=== PATIENT | female | born 1960 | race Caucasian/White ===

== ENCOUNTER → 2017-12-22 | Outpatient (CLI) | payer MEDICARE, OTHER ==
[~2017-12-22] MED LIST: ALPH300T PO; ALPRPOW XX; ASPI81TA82 PO; CALC600T34 PO; CITA-48 PO; DOXY100T PO; EZET10 PO; HUMALOGP SQ; LEVEMIR SQ; LEVO100T4 PO; LISI-357 PO; LYRI150C PO; ROSU20 PO
--- NOTE | 2017-12-22 09:21 | EKG ---
Date Performed: 12/22/2017 Time Performed: 07:42:28 PTAGE: 56 years EKG: Sinus rhythm . Septal T wave changes are nonspecific Borderline ECG PREVIOUS TRACING : 11/12/2011 02.28 Compared to prior tracing, rate now normal DOCTOR: Aster Goff Interpretating Date/Time 12/22/2017 09:21:26
== END ==
LOC: HCAV 07:29
PROVIDERS: ATTEND Orthopaedic Surgery Orthopaedic Surgery of the Spine
DX: Z01.810 Encounter for preprocedural cardiovascular examination (principal)
CPT/HCPCS: 93005

== ENCOUNTER 2019-01-23 00:04 | Inpatient (IN) ==
[2019-01-23] MEDS ORDERED: Sod Chloride 0.9% Inj 1,000 ML IV.SIG ONE (00:17)
[2019-01-23 00:22] LABS: VBG Base Excess -20.9 mmol/L (-2-2); VBG PCO2 23 mmHG (44-48); VBG PH 7.11 (7.360-7.400); VBG PO2 59 mmHG (35-40)
[2019-01-23] MEDS ORDERED: Potassium Chlor 20 mEq Premix 20 MEQ/100 ML PIGGYBACK IV.SIG PRN ×5 (00:26)
[2019-01-23] MEDS ORDERED: Potassium Chlor 40 mEq Premix 40 MEQ/100 ML PIGGYBACK IV.SIG PRN ×2 (00:26)
[2019-01-23] MEDS ORDERED: Sodium Phosphate Inj 15 MMOL in Sodium Chlor 0.9% Inj 100 ML IV.SIG PRN (00:26)
[2019-01-23] MEDS ORDERED: Insulin Regular (For Infusion) 100 UNIT in Sodium Chlor 0.9% Inj 99 ML IV.CONT PRN (00:26)
--- NOTE | 2019-01-23 00:31 | ED ---
HPI General Chief complaint: Diabetic Stated complaint: diabetic Time Seen by Provider: 01/23/19 00:07 Source: patient and EMS Mode of arrival: EMS Limitations: altered mental status History of Present Illness HPI narrative: The patient is a 58 year old female who presents to the [facility] emergency department with a history of reportedly not feeling well since the morning. She reports that she has had generalized weakness with fatigue, nausea with vomiting reportedly 4-5 times today, and diarrhea x1 this morning. Fire rescue was called out to the patient's home earlier in the day and at that time the patient was noted to have a blood sugar of 600, however she refused transport at that time. They were then again called out this evening at which time the patient's blood sugar was reportedly 865. The patient reports feeling short of breath. The patient is tachypneic on arrival with a sinus tach in the 130s. The patient has an insulin pump in place with a basal rate reportedly at 0.4-5 units/h. She reports that she last administered a bolus last night. She reports that she has not administered a bolus today due to feeling unwell. The patient has difficulty providing much additional history as she arrives fatigued and confused. When asked whether her insulin pump is working, she reports that it is, however she was unsure of the rate and had difficulty recalling who usually maintains her pump. Related Data Home Medications Medication Instructions Recorded Confirmed gabapentin 300 mg PO BID 01/23/19 01/23/19 levothyroxine 125 mcg PO DAILY 01/23/19 01/23/19 lisinopril 5 mg PO DAILY 01/23/19 01/23/19 metoprolol succinate 50 mg PO DAILY 01/23/19 01/23/19 oxcarbazepine 75 mg BID 01/23/19 01/23/19 pravastatin 40 mg PO DAILY 01/23/19 01/23/19 sertraline 25 mg PO DAILY 01/23/19 01/23/19 trazodone 100 mg PO HS 01/23/19 01/23/19 Allergies Allergy/AdvReac Type Severity Reaction Status Date / Time No Known Allergies Allergy Verified 01/23/19 00:18 Review of Systems ROS Unobtainable ROS Unobtainable: unobtainable due to mental status PMFSH Medical History Medical History Cataract (Acute) Diabetes (Acute) H/O: hysterectomy (Acute) High cholesterol (Acute) Hypertension (Acute) Hypothyroidism (Acute) Surgical History Surgical History H/O foot surgery (Acute) History of back surgery (Acute) Social History Social History Substance History: Active Abuse Second Hand Smoke Exposure: Yes Smoking Status: Current every day smoker Tobacco Type: Cigarettes How Often Do You Have a Drink Containing Alcohol: 4 or more times a week Recent Travel in [facility] within the Last 8 Weeks: No Recent Out of Country Travel within the Last 8 Weeks: No Substance Abuse Detail Marijuana: Substance Use Status: Active Route Used Substance Abuse: By Mouth and Inhalation Reason for Use: Feels Good Immunization History Tetanus Immunization: Unsure Exam HENMT Head: normocephalic and atraumatic Nose: no nasal discharge and no epistaxis Mouth: other (Dry mucous membranes.) Throat: posterior oropharynx normal and uvula midline Eyes Sclera: normal sclerae Pupils: PERRL Neck Neck: no meningeal signs, trachea midline and no JVD Resp Effort & Inspection: no use of accessory muscles Auscultation: clear to auscultation bilaterally Cardio Rate: tachycardic (Sinus tachycardia in the 120s, no pulse deficits to the extremities on simultaneous auscultation and palpation of her radial artery) Rhythm: regular rhythm Heart Sounds: no gallops, no murmurs and no rubs GI Inspection: non-distended Palpation: soft, no hepatosplenomegaly, no guarding, not rigid and nontender Auscultation: normal bowel sounds Back/Spine/Pelvis Back: no CVA tenderness Skin General: dry skin (warm) Neuro General: alert, awake and other (Grossly nonfocal) Speech: speech normal Motor: no movement abnormalities noted Extrem General: normal to inspection, no calf tenderness, no clubbing, no cyanosis and no edema Psych Mood: congruent mood Affect: normal affect Judgment: judgment good Course Initial Documented Vital Signs Pulse Rate 124 H 01/23/19 00:10 Respiratory Rate 22 01/23/19 00:10 Blood Pressure 117/51 L 01/23/19 00:10 Pulse Oximetry 99 01/23/19 00:10 Last Documented Vital Signs Temperature 97.8 F 02/25/19 08:31 Pulse Rate 107 H 01/23/19 18:01 Respiratory Rate 25 H 01/23/19 18:01 Blood Pressure 140/62 01/23/19 18:01 Pulse Oximetry 100 01/23/19 18:01 Critical Care Time Critical Care Time: Yes Total Critical Care Time: 34 Attestation: Aggregate critical care time was 34 minutes. Time to perform other separately billable procedures was not included in the critical care time. My time did not include minutes spent treating any other patients simultaneously or on activities that did not directly contribute to the patient's treatment. The services I provided to this patient were to treat and/or prevent clinically significant deterioration that could result in: Respiratory failure from fluid overload from crystalloid resuscitation, versus cerebral edema, versus progression of electrolyte derangements with cardiac dysrhythmia. I provided critical care services requiring my management, as noted below: Chart data review, documentation time, medication orders and management, vital sign assessments/reviewing monitor data, ordering and reviewing lab tests, ordering and interpreting/reviewing x-rays and diagnostic studies, care of the patient and discussion of the patient with the admitting physicians. Medical Decision Making MDM Narrative Medical decision making narrative: During the course of the patient's emergency department visit, the patient's history, examination, and differential diagnosis were reviewed with the patient. The patient was placed on a surveillance monitor with oximetry and frequent blood pressure monitoring. The patient had IV access obtained and blood work sent for analysis. A diagnostic evaluation was started regarding the patient's tachypnea associated with hyperglycemia suspicious for DKA. A VBG has been ordered. The patient was initially provided normal saline 1 L IV fluid bolus. The patient's VBG was resulted as showing of 7.105, bicarb 6.9 with a base excess of -20.9. The patient will be started on insulin bolus at 6.5 units IV followed by an insulin drip at 6 units/h. The patient's insulin pump was turned off. The patient's diagnostic studies are remarkable for a white count of 515.3, hemoglobin 13.4, platelets 364 with 80.7 neutrophil percent, PT PTT within normal limits, VBG was consistent with DKA with a pH of 7.11, PCO2 23, bicarb 7 , base excess is -20.9. Chemistries remarkable for sodium of 122, potassium 5.5 , chloride 81, CO2 7.9, anion gap 33, BUN 40, creatinine 3.08 in a patient with her last consistent with acute kidney injury versus acute on chronic renal insufficiency, blood sugar was initially 908, CK 58, troponin I 0.10, beta hydroxybutyrate is elevated 11.56, lipase 283. The patient's chest x-ray showed no acute cardiopulmonary disease. The patient's case including history, pertinent physical examination findings, and laboratory studies were discussed with Dr. Peraza,the retail sales merchandiser hotel casino floorperson. It was agreed that the patient would be admitted to the retail sales merchandiser's service. The patient's results were discussed with the patient, including the plan of care. I explained that further testing and/ or monitoring is indicated based on the patient's history, examination, and/ or laboratory findings. Therefore, I recommended admission for additional evaluation. The patient expressed understanding and was agreeable with this plan. The patient was admitted to the hospital in critical condition and sent to a bed under the care of the retail sales merchandiser service. Medical Screen Exam Complete: Yes Emergency Medical Condition: Yes Differential Diagnosis Differential Diagnosis: DKA, versus hyperglycemic hyperosmolality, versus poorly controlled diabetes mellitus, versus electrolyte derangements, versus sepsis Medical Records Medical records reviewed: Yes I reviewed the patient's medical records. Lab Data Lab results reviewed: Yes I reviewed the patient's lab results. Result diagrams: 01/23/19 00:20 01/23/19 12:42 Lab Results 01/23/19 01/23/19 01/23/19 Range/Units 00:12 00:20 00:20 WBC (4.0-11.0) th/mm3 RBC (4.00-5.30) mil/mm3 Hgb (11.6-15.3) gm/dL Hct (35.0-46.0) % MCV (80.0-100.0) fL MCH (27.0-34.0) pg MCHC (32.0-36.0) % RDW (11.6-17.2) % Plt Count (150-450) th/mm3 MPV (7.0-11.0) fL Prelim Diff (Auto) Neut % (Auto) (16.0-70.0) % Lymph % (Auto) (9.0-44.0) % [place] % (Auto) (0.0-8.0) % Eos % (Auto) (0.0-4.0) % Baso % (Auto) (0.0-2.0) % Neut # (Auto) (1.8-7.7) th/mm3 Lymph # (Auto) (1.0-4.8) th/mm3 [place] # (Auto) (0.0-0.9) th/mm3 Eos # (Auto) (0.0-0.4) th/mm3 Baso # (Auto) (0.0-0.2) th/mm3 WBC Differential Diff Scan Differential Comment Platelet Estimate (Normal) Platelet Morphology (Normal) [place] Cells (None) PT (9.8-11.6) sec INR Ratio APTT (23.4-31.7) sec Puncture Site Iv Patient Temperature 98.6 VBG pH 7.11 L* (7.360-7.400) VBG pCO2 23 L (44-48) mmHG VBG pO2 59 H (35-40) mmHG VBG HCO3 7 L* (22-26) mmol/L VBG O2 Saturation 79 H (70-76) % VBG O2 Content 14.0 (9.0-17.0) Vol % VBG Base Excess -20.9 L (-2-2) mmol/L VBG Carboxyhemoglobin 1.0 (0-4) % VBG Methemoglobin 1.0 (0-2) % Hemoglobin 12.6 (12.0-16.0) G/DL O2 Delivery Device Room air Inspired O2 21 % Critical Value Yes Sodium (136-145) meq/L Potassium (3.5-5.1) meq/L Chloride (98-107) meq/L Carbon Dioxide (21.0-32.0) meq/L Anion Gap (5-15) meq/L BUN (7-18) mg/dL Creatinine (0.50-1.00) mg/dL Estimated GFR (>89) mL/min POC Glucose (68-110) mg/dl Random Glucose (74-106) mg/dL Lactic Acid 8.3 H* (0.4-2.0) mmol/L Calcium (8.5-10.1) mg/dL Phosphorus (2.5-4.9) mg/dL Magnesium (1.5-2.5) mg/dL Total Bilirubin (0.2-1.0) mg/dL AST (15-37) U/L ALT (10-53) U/L Alkaline Phosphatase (45-117) U/L Total Creatine Kinase (26-192) U/L CK-MB (CK-2) (0.5-3.6) ng/mL Troponin I (0.02-0.05) ng/mL B-Natriuretic Peptide 231 H (0-100) pg/mL Total Protein (6.4-8.2) g/dL Albumin (3.4-5.0) g/dL Lipase (73-393) U/L Beta-Hydroxybutyric Acd (0.00-0.39) mmol/L Urine Color (Yellw/Straw) Urine Clarity (Clear) Urine pH (5.0-8.5) Ur Specific [place] (1.002-1.035) Urine Protein (Neg-Trace) mg/dL Urine Glucose (UA) (Negative) mg/dL Urine Ketones (Negative) mg/dL Urine Occult Blood (Negative) Urine Nitrate (Negative) Urine Bilirubin (Negative) Urine Urobilinogen (Less than 2) mg/dL Ur Leukocyte Esterase (Negative) Urine WBC (0-5) /hpf Ur Squamous Epith Cells (0-5) /hpf Urine Bacteria (None) /hpf Hyaline Casts (0-3) /lpf Urine Mucus (Occasional) /lpf Micro UA Comment Ur Microscopic Review Urine Culture Comments Nasal Screen MRSA (PCR) (Negative) 01/23/19 01/23/19 01/23/19 Range/Units 00:20 00:20 00:20 WBC 15.3 H (4.0-11.0) th/mm3 RBC 3.62 L (4.00-5.30) mil/mm3 Hgb 13.4 (11.6-15.3) gm/dL Hct 42.1 (35.0-46.0) % MCV 116.4 H (80.0-100.0) fL MCH 37.1 H (27.0-34.0) pg MCHC 31.9 L (32.0-36.0) % RDW 15.0 (11.6-17.2) % Plt Count 364 (150-450) th/mm3 MPV 7.7 (7.0-11.0) fL Prelim Diff (Auto) Slide review pending Neut % (Auto) 80.7 H (16.0-70.0) % Lymph % (Auto) 12.6 (9.0-44.0) % [place] % (Auto) 6.4 (0.0-8.0) % Eos % (Auto) 0.1 (0.0-4.0) % Baso % (Auto) 0.2 (0.0-2.0) % Neut # (Auto) 12.4 H (1.8-7.7) th/mm3 Lymph # (Auto) 1.9 (1.0-4.8) th/mm3 [place] # (Auto) 1.0 H (0.0-0.9) th/mm3 Eos # (Auto) 0.0 (0.0-0.4) th/mm3 Baso # (Auto) 0.0 (0.0-0.2) th/mm3 WBC Differential . Diff Scan Auto diff confirmed Differential Comment . Platelet Estimate Normal (Normal) Platelet Morphology Normal (Normal) [place] Cells 1+ H (None) PT 9.9 (9.8-11.6) sec INR 1.0 Ratio APTT 26.5 (23.4-31.7) sec Puncture Site Patient Temperature VBG pH (7.360-7.400) VBG pCO2 (44-48) mmHG VBG pO2 (35-40) mmHG VBG HCO3 (22-26) mmol/L VBG O2 Saturation (70-76) % VBG O2 Content (9.0-17.0) Vol % VBG Base Excess (-2-2) mmol/L VBG Carboxyhemoglobin (0-4) % VBG Methemoglobin (0-2) % Hemoglobin (12.0-16.0) G/DL O2 Delivery Device Inspired O2 % Critical Value Sodium 122 L* (136-145) meq/L Potassium 5.5 H (3.5-5.1) meq/L Chloride 81 L (98-107) meq/L Carbon Dioxide 7.9 L (21.0-32.0) meq/L Anion Gap 33 H (5-15) meq/L BUN 40 H (7-18) mg/dL Creatinine 3.08 H (0.50-1.00) mg/dL Estimated GFR 16 L (>89) mL/min POC Glucose (68-110) mg/dl Random Glucose 908 H* (74-106) mg/dL Lactic Acid (0.4-2.0) mmol/L Calcium 8.3 L (8.5-10.1) mg/dL Phosphorus (2.5-4.9) mg/dL Magnesium 1.9 (1.5-2.5) mg/dL Total Bilirubin 0.6 (0.2-1.0) mg/dL AST 21 (15-37) U/L ALT 31 (10-53) U/L Alkaline Phosphatase 111 (45-117) U/L Total Creatine Kinase 58 (26-192) U/L CK-MB (CK-2) (0.5-3.6) ng/mL Troponin I 0.10 H (0.02-0.05) ng/mL B-Natriuretic Peptide (0-100) pg/mL Total Protein 6.8 (6.4-8.2) g/dL Albumin 4.0 (3.4-5.0) g/dL Lipase 283 (73-393) U/L Beta-Hydroxybutyric Acd 11.56 H (0.00-0.39) mmol/L Urine Color (Yellw/Straw) Urine Clarity (Clear) Urine pH (5.0-8.5) Ur Specific [place] (1.002-1.035) Urine Protein (Neg-Trace) mg/dL Urine Glucose (UA) (Negative) mg/dL Urine Ketones (Negative) mg/dL Urine Occult Blood (Negative) Urine Nitrate (Negative) Urine Bilirubin (Negative) Urine Urobilinogen (Less than 2) mg/dL Ur Leukocyte Esterase (Negative) Urine WBC (0-5) /hpf Ur Squamous Epith Cells (0-5) /hpf Urine Bacteria (None) /hpf Hyaline Casts (0-3) /lpf Urine Mucus (Occasional) /lpf Micro UA Comment Ur Microscopic Review Urine Culture Comments Nasal Screen MRSA (PCR) (Negative) 01/23/19 01/23/19 01/23/19 Range/Units 01:33 02:20 02:26 WBC (4.0-11.0) th/mm3 RBC (4.00-5.30) mil/mm3 Hgb (11.6-15.3) gm/dL Hct (35.0-46.0) % MCV (80.0-100.0) fL MCH (27.0-34.0) pg MCHC (32.0-36.0) % RDW (11.6-17.2) % Plt Count (150-450) th/mm3 MPV (7.0-11.0) fL Prelim Diff (Auto) Neut % (Auto) (16.0-70.0) % Lymph % (Auto) (9.0-44.0) % [place] % (Auto) (0.0-8.0) % Eos % (Auto) (0.0-4.0) % Baso % (Auto) (0.0-2.0) % Neut # (Auto) (1.8-7.7) th/mm3 Lymph # (Auto) (1.0-4.8) th/mm3 [place] # (Auto) (0.0-0.9) th/mm3 Eos # (Auto) (0.0-0.4) th/mm3 Baso # (Auto) (0.0-0.2) th/mm3 WBC Differential Diff Scan Differential Comment Platelet Estimate (Normal) Platelet Morphology (Normal) [place] Cells (None) PT (9.8-11.6) sec INR Ratio APTT (23.4-31.7) sec Puncture Site Patient Temperature VBG pH (7.360-7.400) VBG pCO2 (44-48) mmHG VBG pO2 (35-40) mmHG VBG HCO3 (22-26) mmol/L VBG O2 Saturation (70-76) % VBG O2 Content (9.0-17.0) Vol % VBG Base Excess (-2-2) mmol/L VBG Carboxyhemoglobin (0-4) % VBG Methemoglobin (0-2) % Hemoglobin (12.0-16.0) G/DL O2 Delivery Device Inspired O2 % Critical Value Sodium (136-145) meq/L Potassium (3.5-5.1) meq/L Chloride (98-107) meq/L Carbon Dioxide (21.0-32.0) meq/L Anion Gap (5-15) meq/L BUN (7-18) mg/dL Creatinine (0.50-1.00) mg/dL Estimated GFR (>89) mL/min POC Glucose Greater than 600 H* Greater than 600 H* (68-110) mg/dl Random Glucose (74-106) mg/dL Lactic Acid (0.4-2.0) mmol/L Calcium (8.5-10.1) mg/dL Phosphorus (2.5-4.9) mg/dL Magnesium (1.5-2.5) mg/dL Total Bilirubin (0.2-1.0) mg/dL AST (15-37) U/L ALT (10-53) U/L Alkaline Phosphatase (45-117) U/L Total Creatine Kinase (26-192) U/L CK-MB (CK-2) (0.5-3.6) ng/mL Troponin I (0.02-0.05) ng/mL B-Natriuretic Peptide (0-100) pg/mL Total Protein (6.4-8.2) g/dL Albumin (3.4-5.0) g/dL Lipase (73-393) U/L Beta-Hydroxybutyric Acd (0.00-0.39) mmol/L Urine Color Yellow (Yellw/Straw) Urine Clarity Hazy H (Clear) Urine pH 5.0 (5.0-8.5) Ur Specific [place] 1.012 (1.002-1.035) Urine Protein 30 H (Neg-Trace) mg/dL Urine Glucose (UA) 500 or greater H (Negative) mg/dL Urine Ketones 20 (Negative) mg/dL Urine Occult Blood Small H (Negative) Urine Nitrate Negative (Negative) Urine Bilirubin Negative (Negative) Urine Urobilinogen Less than 2 (Less than 2) mg/dL Ur Leukocyte Esterase Negative (Negative) Urine WBC 1 (0-5) /hpf Ur Squamous Epith Cells 1 (0-5) /hpf Urine Bacteria Rare H (None) /hpf Hyaline Casts 56 (0-3) /lpf Urine Mucus Few H (Occasional) /lpf Micro UA Comment Culture not ind Ur Microscopic Review Not Reportable Urine Culture Comments Culture not ind Nasal Screen MRSA (PCR) (Negative) 01/23/19 01/23/19 01/23/19 Range/Units 02:30 03:00 03:29 WBC (4.0-11.0) th/mm3 RBC (4.00-5.30) mil/mm3 Hgb (11.6-15.3) gm/dL Hct (35.0-46.0) % MCV (80.0-100.0) fL MCH (27.0-34.0) pg MCHC (32.0-36.0) % RDW (11.6-17.2) % Plt Count (150-450) th/mm3 MPV (7.0-11.0) fL Prelim Diff (Auto) Neut % (Auto) (16.0-70.0) % Lymph % (Auto) (9.0-44.0) % [place] % (Auto) (0.0-8.0) % Eos % (Auto) (0.0-4.0) % Baso % (Auto) (0.0-2.0) % Neut # (Auto) (1.8-7.7) th/mm3 Lymph # (Auto) (1.0-4.8) th/mm3 [place] # (Auto) (0.0-0.9) th/mm3 Eos # (Auto) (0.0-0.4) th/mm3 Baso # (Auto) (0.0-0.2) th/mm3 WBC Differential Diff Scan Differential Comment Platelet Estimate (Normal) Platelet Morphology (Normal) [place] Cells (None) PT (9.8-11.6) sec INR Ratio APTT (23.4-31.7) sec Puncture Site Patient Temperature VBG pH (7.360-7.400) VBG pCO2 (44-48) mmHG VBG pO2 (35-40) mmHG VBG HCO3 (22-26) mmol/L VBG O2 Saturation (70-76) % VBG O2 Content (9.0-17.0) Vol % VBG Base Excess (-2-2) mmol/L VBG Carboxyhemoglobin (0-4) % VBG Methemoglobin (0-2) % Hemoglobin (12.0-16.0) G/DL O2 Delivery Device Inspired O2 % Critical Value Sodium (136-145) meq/L Potassium (3.5-5.1) meq/L Chloride (98-107) meq/L Carbon Dioxide (21.0-32.0) meq/L Anion Gap (5-15) meq/L BUN (7-18) mg/dL Creatinine (0.50-1.00) mg/dL Estimated GFR (>89) mL/min POC Glucose 593 H* (68-110) mg/dl Random Glucose 704 H* D (74-106) mg/dL Lactic Acid 3.9 H (0.4-2.0) mmol/L Calcium (8.5-10.1) mg/dL Phosphorus (2.5-4.9) mg/dL Magnesium (1.5-2.5) mg/dL Total Bilirubin (0.2-1.0) mg/dL AST (15-37) U/L ALT (10-53) U/L Alkaline Phosphatase (45-117) U/L Total Creatine Kinase (26-192) U/L CK-MB (CK-2) (0.5-3.6) ng/mL Troponin I (0.02-0.05) ng/mL B-Natriuretic Peptide (0-100) pg/mL Total Protein (6.4-8.2) g/dL Albumin (3.4-5.0) g/dL Lipase (73-393) U/L Beta-Hydroxybutyric Acd (0.00-0.39) mmol/L Urine Color (Yellw/Straw) Urine Clarity (Clear) Urine pH (5.0-8.5) Ur Specific [place] (1.002-1.035) Urine Protein (Neg-Trace) mg/dL Urine Glucose (UA) (Negative) mg/dL Urine Ketones (Negative) mg/dL Urine Occult Blood (Negative) Urine Nitrate (Negative) Urine Bilirubin (Negative) Urine Urobilinogen (Less than 2) mg/dL Ur Leukocyte Esterase (Negative) Urine WBC (0-5) /hpf Ur Squamous Epith Cells (0-5) /hpf Urine Bacteria (None) /hpf Hyaline Casts (0-3) /lpf Urine Mucus (Occasional) /lpf Micro UA Comment Ur Microscopic Review Urine Culture Comments Nasal Screen MRSA (PCR) (Negative) 01/23/19 01/23/19 01/23/19 Range/Units 04:29 04:30 05:28 WBC (4.0-11.0) th/mm3 RBC (4.00-5.30) mil/mm3 Hgb (11.6-15.3) gm/dL Hct (35.0-46.0) % MCV (80.0-100.0) fL MCH (27.0-34.0) pg MCHC (32.0-36.0) % RDW (11.6-17.2) % Plt Count (150-450) th/mm3 MPV (7.0-11.0) fL Prelim Diff (Auto) Neut % (Auto) (16.0-70.0) % Lymph % (Auto) (9.0-44.0) % [place] % (Auto) (0.0-8.0) % Eos % (Auto) (0.0-4.0) % Baso % (Auto) (0.0-2.0) % Neut # (Auto) (1.8-7.7) th/mm3 Lymph # (Auto) (1.0-4.8) th/mm3 [place] # (Auto) (0.0-0.9) th/mm3 Eos # (Auto) (0.0-0.4) th/mm3 Baso # (Auto) (0.0-0.2) th/mm3 WBC Differential Diff Scan Differential Comment Platelet Estimate (Normal) Platelet Morphology (Normal) [place] Cells (None) PT (9.8-11.6) sec INR Ratio APTT (23.4-31.7) sec Puncture Site Patient Temperature VBG pH (7.360-7.400) VBG pCO2 (44-48) mmHG VBG pO2 (35-40) mmHG VBG HCO3 (22-26) mmol/L VBG O2 Saturation (70-76) % VBG O2 Content (9.0-17.0) Vol % VBG Base Excess (-2-2) mmol/L VBG Carboxyhemoglobin (0-4) % VBG Methemoglobin (0-2) % Hemoglobin (12.0-16.0) G/DL O2 Delivery Device Inspired O2 % Critical Value Sodium 131 L (136-145) meq/L Potassium 4.1 D (3.5-5.1) meq/L Chloride 96 L D (98-107) meq/L Carbon Dioxide 17.9 L D (21.0-32.0) meq/L Anion Gap 17 H (5-15) meq/L BUN 36 H (7-18) mg/dL Creatinine 2.69 H (0.50-1.00) mg/dL Estimated GFR 18 L (>89) mL/min POC Glucose 504 H* 478 H* (68-110) mg/dl Random Glucose 481 H* D (74-106) mg/dL Lactic Acid (0.4-2.0) mmol/L Calcium 7.9 L (8.5-10.1) mg/dL Phosphorus 2.4 L (2.5-4.9) mg/dL Magnesium 1.9 (1.5-2.5) mg/dL Total Bilirubin (0.2-1.0) mg/dL AST (15-37) U/L ALT (10-53) U/L Alkaline Phosphatase (45-117) U/L Total Creatine Kinase (26-192) U/L CK-MB (CK-2) (0.5-3.6) ng/mL Troponin I 0.45 H D (0.02-0.05) ng/mL B-Natriuretic Peptide (0-100) pg/mL Total Protein (6.4-8.2) g/dL Albumin (3.4-5.0) g/dL Lipase (73-393) U/L Beta-Hydroxybutyric Acd 6.22 H D (0.00-0.39) mmol/L Urine Color (Yellw/Straw) Urine Clarity (Clear) Urine pH (5.0-8.5) Ur Specific [place] (1.002-1.035) Urine Protein (Neg-Trace) mg/dL Urine Glucose (UA) (Negative) mg/dL Urine Ketones (Negative) mg/dL Urine Occult Blood (Negative) Urine Nitrate (Negative) Urine Bilirubin (Negative) Urine Urobilinogen (Less than 2) mg/dL Ur Leukocyte Esterase (Negative) Urine WBC (0-5) /hpf Ur Squamous Epith Cells (0-5) /hpf Urine Bacteria (None) /hpf Hyaline Casts (0-3) /lpf Urine Mucus (Occasional) /lpf Micro UA Comment Ur Microscopic Review Urine Culture Comments Nasal Screen MRSA (PCR) (Negative) 01/23/19 01/23/19 01/23/19 Range/Units 06:00 06:28 07:38 WBC (4.0-11.0) th/mm3 RBC (4.00-5.30) mil/mm3 Hgb (11.6-15.3) gm/dL Hct (35.0-46.0) % MCV (80.0-100.0) fL MCH (27.0-34.0) pg MCHC (32.0-36.0) % RDW (11.6-17.2) % Plt Count (150-450) th/mm3 MPV (7.0-11.0) fL Prelim Diff (Auto) Neut % (Auto) (16.0-70.0) % Lymph % (Auto) (9.0-44.0) % [place] % (Auto) (0.0-8.0) % Eos % (Auto) (0.0-4.0) % Baso % (Auto) (0.0-2.0) % Neut # (Auto) (1.8-7.7) th/mm3 Lymph # (Auto) (1.0-4.8) th/mm3 [place] # (Auto) (0.0-0.9) th/mm3 Eos # (Auto) (0.0-0.4) th/mm3 Baso # (Auto) (0.0-0.2) th/mm3 WBC Differential Diff Scan Differential Comment Platelet Estimate (Normal) Platelet Morphology (Normal) [place] Cells (None) PT (9.8-11.6) sec INR Ratio APTT (23.4-31.7) sec Puncture Site Patient Temperature VBG pH (7.360-7.400) VBG pCO2 (44-48) mmHG VBG pO2 (35-40) mmHG VBG HCO3 (22-26) mmol/L VBG O2 Saturation (70-76) % VBG O2 Content (9.0-17.0) Vol % VBG Base Excess (-2-2) mmol/L VBG Carboxyhemoglobin (0-4) % VBG Methemoglobin (0-2) % Hemoglobin (12.0-16.0) G/DL O2 Delivery Device Inspired O2 % Critical Value Sodium (136-145) meq/L Potassium (3.5-5.1) meq/L Chloride (98-107) meq/L Carbon Dioxide (21.0-32.0) meq/L Anion Gap (5-15) meq/L BUN (7-18) mg/dL Creatinine (0.50-1.00) mg/dL Estimated GFR (>89) mL/min POC Glucose 351 H 294 H (68-110) mg/dl Random Glucose (74-106) mg/dL Lactic Acid (0.4-2.0) mmol/L Calcium (8.5-10.1) mg/dL Phosphorus (2.5-4.9) mg/dL Magnesium (1.5-2.5) mg/dL Total Bilirubin (0.2-1.0) mg/dL AST (15-37) U/L ALT (10-53) U/L Alkaline Phosphatase (45-117) U/L Total Creatine Kinase (26-192) U/L CK-MB (CK-2) (0.5-3.6) ng/mL Troponin I (0.02-0.05) ng/mL B-Natriuretic Peptide (0-100) pg/mL Total Protein (6.4-8.2) g/dL Albumin (3.4-5.0) g/dL Lipase (73-393) U/L Beta-Hydroxybutyric Acd (0.00-0.39) mmol/L Urine Color (Yellw/Straw) Urine Clarity (Clear) Urine pH (5.0-8.5) Ur Specific [place] (1.002-1.035) Urine Protein (Neg-Trace) mg/dL Urine Glucose (UA) (Negative) mg/dL Urine Ketones (Negative) mg/dL Urine Occult Blood (Negative) Urine Nitrate (Negative) Urine Bilirubin (Negative) Urine Urobilinogen (Less than 2) mg/dL Ur Leukocyte Esterase (Negative) Urine WBC (0-5) /hpf Ur Squamous Epith Cells (0-5) /hpf Urine Bacteria (None) /hpf Hyaline Casts (0-3) /lpf Urine Mucus (Occasional) /lpf Micro UA Comment Ur Microscopic Review Urine Culture Comments Nasal Screen MRSA (PCR) Not detected (Negative) 01/23/19 01/23/19 01/23/19 Range/Units 08:41 09:47 10:28 WBC (4.0-11.0) th/mm3 RBC (4.00-5.30) mil/mm3 Hgb (11.6-15.3) gm/dL Hct (35.0-46.0) % MCV (80.0-100.0) fL MCH (27.0-34.0) pg MCHC (32.0-36.0) % RDW (11.6-17.2) % Plt Count (150-450) th/mm3 MPV (7.0-11.0) fL Prelim Diff (Auto) Neut % (Auto) (16.0-70.0) % Lymph % (Auto) (9.0-44.0) % [place] % (Auto) (0.0-8.0) % Eos % (Auto) (0.0-4.0) % Baso % (Auto) (0.0-2.0) % Neut # (Auto) (1.8-7.7) th/mm3 Lymph # (Auto) (1.0-4.8) th/mm3 [place] # (Auto) (0.0-0.9) th/mm3 Eos # (Auto) (0.0-0.4) th/mm3 Baso # (Auto) (0.0-0.2) th/mm3 WBC Differential Diff Scan Differential Comment Platelet Estimate (Normal) Platelet Morphology (Normal) Katt Cells (None) PT (9.8-11.6) sec INR Ratio APTT (23.4-31.7) sec Puncture Site Patient Temperature VBG pH (7.360-7.400) VBG pCO2 (44-48) mmHG VBG pO2 (35-40) mmHG VBG HCO3 (22-26) mmol/L VBG O2 Saturation (70-76) % VBG O2 Content (9.0-17.0) Vol % VBG Base Excess (-2-2) mmol/L VBG Carboxyhemoglobin (0-4) % VBG Methemoglobin (0-2) % Hemoglobin (12.0-16.0) G/DL O2 Delivery Device Inspired O2 % Critical Value Sodium (136-145) meq/L Potassium (3.5-5.1) meq/L Chloride (98-107) meq/L Carbon Dioxide (21.0-32.0) meq/L Anion Gap (5-15) meq/L BUN (7-18) mg/dL Creatinine (0.50-1.00) mg/dL Estimated GFR (>89) mL/min POC Glucose 224 H 168 H 202 H (68-110) mg/dl Random Glucose (74-106) mg/dL Lactic Acid (0.4-2.0) mmol/L Calcium (8.5-10.1) mg/dL Phosphorus (2.5-4.9) mg/dL Magnesium (1.5-2.5) mg/dL Total Bilirubin (0.2-1.0) mg/dL AST (15-37) U/L ALT (10-53) U/L Alkaline Phosphatase (45-117) U/L Total Creatine Kinase (26-192) U/L CK-MB (CK-2) (0.5-3.6) ng/mL Troponin I (0.02-0.05) ng/mL B-Natriuretic Peptide (0-100) pg/mL Total Protein (6.4-8.2) g/dL Albumin (3.4-5.0) g/dL Lipase (73-393) U/L Beta-Hydroxybutyric Acd (0.00-0.39) mmol/L Urine Color (Yellw/Straw) Urine Clarity (Clear) Urine pH (5.0-8.5) Ur Specific [place] (1.002-1.035) Urine Protein (Neg-Trace) mg/dL Urine Glucose (UA) (Negative) mg/dL Urine Ketones (Negative) mg/dL Urine Occult Blood (Negative) Urine Nitrate (Negative) Urine Bilirubin (Negative) Urine Urobilinogen (Less than 2) mg/dL Ur Leukocyte Esterase (Negative) Urine WBC (0-5) /hpf Ur Squamous Epith Cells (0-5) /hpf Urine Bacteria (None) /hpf Hyaline Casts (0-3) /lpf Urine Mucus (Occasional) /lpf Micro UA Comment Ur Microscopic Review Urine Culture Comments Nasal Screen MRSA (PCR) (Negative) 01/23/19 01/23/19 01/23/19 Range/Units 11:28 12:41 12:42 WBC (4.0-11.0) th/mm3 RBC (4.00-5.30) mil/mm3 Hgb (11.6-15.3) gm/dL Hct (35.0-46.0) % MCV (80.0-100.0) fL MCH (27.0-34.0) pg MCHC (32.0-36.0) % RDW (11.6-17.2) % Plt Count (150-450) th/mm3 MPV (7.0-11.0) fL Prelim Diff (Auto) Neut % (Auto) (16.0-70.0) % Lymph % (Auto) (9.0-44.0) % [place] % (Auto) (0.0-8.0) % Eos % (Auto) (0.0-4.0) % Baso % (Auto) (0.0-2.0) % Neut # (Auto) (1.8-7.7) th/mm3 Lymph # (Auto) (1.0-4.8) th/mm3 [place] # (Auto) (0.0-0.9) th/mm3 Eos # (Auto) (0.0-0.4) th/mm3 Baso # (Auto) (0.0-0.2) th/mm3 WBC Differential Diff Scan Differential Comment Platelet Estimate (Normal) Platelet Morphology (Normal) [place] Cells (None) PT (9.8-11.6) sec INR Ratio APTT (23.4-31.7) sec Puncture Site Patient Temperature VBG pH (7.360-7.400) VBG pCO2 (44-48) mmHG VBG pO2 (35-40) mmHG VBG HCO3 (22-26) mmol/L VBG O2 Saturation (70-76) % VBG O2 Content (9.0-17.0) Vol % VBG Base Excess (-2-2) mmol/L VBG Carboxyhemoglobin (0-4) % VBG Methemoglobin (0-2) % Hemoglobin (12.0-16.0) G/DL O2 Delivery Device Inspired O2 % Critical Value Sodium 136 (136-145) meq/L Potassium 4.2 (3.5-5.1) meq/L Chloride 106 D (98-107) meq/L Carbon Dioxide 23.2 (21.0-32.0) meq/L Anion Gap 7 (5-15) meq/L BUN 30 H (7-18) mg/dL Creatinine 1.89 H (0.50-1.00) mg/dL Estimated GFR 27 L (>89) mL/min POC Glucose 166 H 111 H (68-110) mg/dl Random Glucose 96 D (74-106) mg/dL Lactic Acid (0.4-2.0) mmol/L Calcium 8.1 L (8.5-10.1) mg/dL Phosphorus 1.8 L (2.5-4.9) mg/dL Magnesium 1.9 (1.5-2.5) mg/dL Total Bilirubin (0.2-1.0) mg/dL AST (15-37) U/L ALT (10-53) U/L Alkaline Phosphatase (45-117) U/L Total Creatine Kinase (26-192) U/L CK-MB (CK-2) (0.5-3.6) ng/mL Troponin I 1.87 H* D (0.02-0.05) ng/mL B-Natriuretic Peptide (0-100) pg/mL Total Protein (6.4-8.2) g/dL Albumin (3.4-5.0) g/dL Lipase (73-393) U/L Beta-Hydroxybutyric Acd (0.00-0.39) mmol/L Urine Color (Yellw/Straw) Urine Clarity (Clear) Urine pH (5.0-8.5) Ur Specific [place] (1.002-1.035) Urine Protein (Neg-Trace) mg/dL Urine Glucose (UA) (Negative) mg/dL Urine Ketones (Negative) mg/dL Urine Occult Blood (Negative) Urine Nitrate (Negative) Urine Bilirubin (Negative) Urine Urobilinogen (Less than 2) mg/dL Ur Leukocyte Esterase (Negative) Urine WBC (0-5) /hpf Ur Squamous Epith Cells (0-5) /hpf Urine Bacteria (None) /hpf Hyaline Casts (0-3) /lpf Urine Mucus (Occasional) /lpf Micro UA Comment Ur Microscopic Review Urine Culture Comments Nasal Screen MRSA (PCR) (Negative) 01/23/19 01/23/19 01/23/19 Range/Units 12:42 13:09 13:26 WBC (4.0-11.0) th/mm3 RBC (4.00-5.30) mil/mm3 Hgb (11.6-15.3) gm/dL Hct (35.0-46.0) % MCV (80.0-100.0) fL MCH (27.0-34.0) pg MCHC (32.0-36.0) % RDW (11.6-17.2) % Plt Count (150-450) th/mm3 MPV (7.0-11.0) fL Prelim Diff (Auto) Neut % (Auto) (16.0-70.0) % Lymph % (Auto) (9.0-44.0) % [place] % (Auto) (0.0-8.0) % Eos % (Auto) (0.0-4.0) % Baso % (Auto) (0.0-2.0) % Neut # (Auto) (1.8-7.7) th/mm3 Lymph # (Auto) (1.0-4.8) th/mm3 [place] # (Auto) (0.0-0.9) th/mm3 Eos # (Auto) (0.0-0.4) th/mm3 Baso # (Auto) (0.0-0.2) th/mm3 WBC Differential Diff Scan Differential Comment Platelet Estimate (Normal) Platelet Morphology (Normal) [place] Cells (None) PT (9.8-11.6) sec INR Ratio APTT (23.4-31.7) sec Puncture Site Patient Temperature VBG pH (7.360-7.400) VBG pCO2 (44-48) mmHG VBG pO2 (35-40) mmHG VBG HCO3 (22-26) mmol/L VBG O2 Saturation (70-76) % VBG O2 Content (9.0-17.0) Vol % VBG Base Excess (-2-2) mmol/L VBG Carboxyhemoglobin (0-4) % VBG Methemoglobin (0-2) % Hemoglobin (12.0-16.0) G/DL O2 Delivery Device Inspired O2 % Critical Value Sodium (136-145) meq/L Potassium (3.5-5.1) meq/L Chloride (98-107) meq/L Carbon Dioxide (21.0-32.0) meq/L Anion Gap (5-15) meq/L BUN (7-18) mg/dL Creatinine (0.50-1.00) mg/dL Estimated GFR (>89) mL/min POC Glucose 84 198 H (68-110) mg/dl Random Glucose (74-106) mg/dL Lactic Acid (0.4-2.0) mmol/L Calcium (8.5-10.1) mg/dL Phosphorus (2.5-4.9) mg/dL Magnesium (1.5-2.5) mg/dL Total Bilirubin (0.2-1.0) mg/dL AST (15-37) U/L ALT (10-53) U/L Alkaline Phosphatase (45-117) U/L Total Creatine Kinase 111 (26-192) U/L CK-MB (CK-2) 3.9 H (0.5-3.6) ng/mL Troponin I (0.02-0.05) ng/mL B-Natriuretic Peptide (0-100) pg/mL Total Protein (6.4-8.2) g/dL Albumin (3.4-5.0) g/dL Lipase (73-393) U/L Beta-Hydroxybutyric Acd (0.00-0.39) mmol/L Urine Color (Yellw/Straw) Urine Clarity (Clear) Urine pH (5.0-8.5) Ur Specific [place] (1.002-1.035) Urine Protein (Neg-Trace) mg/dL Urine Glucose (UA) (Negative) mg/dL Urine Ketones (Negative) mg/dL Urine Occult Blood (Negative) Urine Nitrate (Negative) Urine Bilirubin (Negative) Urine Urobilinogen (Less than 2) mg/dL Ur Leukocyte Esterase (Negative) Urine WBC (0-5) /hpf Ur Squamous Epith Cells (0-5) /hpf Urine Bacteria (None) /hpf Hyaline Casts (0-3) /lpf Urine Mucus (Occasional) /lpf Micro UA Comment Ur Microscopic Review Urine Culture Comments Nasal Screen MRSA (PCR) (Negative) 01/23/19 01/23/19 01/23/19 Range/Units 14:11 15:56 19:04 WBC (4.0-11.0) th/mm3 RBC (4.00-5.30) mil/mm3 Hgb (11.6-15.3) gm/dL Hct (35.0-46.0) % MCV (80.0-100.0) fL MCH (27.0-34.0) pg MCHC (32.0-36.0) % RDW (11.6-17.2) % Plt Count (150-450) th/mm3 MPV (7.0-11.0) fL Prelim Diff (Auto) Neut % (Auto) (16.0-70.0) % Lymph % (Auto) (9.0-44.0) % [place] % (Auto) (0.0-8.0) % Eos % (Auto) (0.0-4.0) % Baso % (Auto) (0.0-2.0) % Neut # (Auto) (1.8-7.7) th/mm3 Lymph # (Auto) (1.0-4.8) th/mm3 [place] # (Auto) (0.0-0.9) th/mm3 Eos # (Auto) (0.0-0.4) th/mm3 Baso # (Auto) (0.0-0.2) th/mm3 WBC Differential Diff Scan Differential Comment Platelet Estimate (Normal) Platelet Morphology (Normal) [place] Cells (None) PT (9.8-11.6) sec INR Ratio APTT (23.4-31.7) sec Puncture Site Patient Temperature VBG pH (7.360-7.400) VBG pCO2 (44-48) mmHG VBG pO2 (35-40) mmHG VBG HCO3 (22-26) mmol/L VBG O2 Saturation (70-76) % VBG O2 Content (9.0-17.0) Vol % VBG Base Excess (-2-2) mmol/L VBG Carboxyhemoglobin (0-4) % VBG Methemoglobin (0-2) % Hemoglobin (12.0-16.0) G/DL O2 Delivery Device Inspired O2 % Critical Value Sodium (136-145) meq/L Potassium (3.5-5.1) meq/L Chloride (98-107) meq/L Carbon Dioxide (21.0-32.0) meq/L Anion Gap (5-15) meq/L BUN (7-18) mg/dL Creatinine (0.50-1.00) mg/dL Estimated GFR (>89) mL/min POC Glucose 213 H 353 H 354 H (68-110) mg/dl Random Glucose (74-106) mg/dL Lactic Acid (0.4-2.0) mmol/L Calcium (8.5-10.1) mg/dL Phosphorus (2.5-4.9) mg/dL Magnesium (1.5-2.5) mg/dL Total Bilirubin (0.2-1.0) mg/dL AST (15-37) U/L ALT (10-53) U/L Alkaline Phosphatase (45-117) U/L Total Creatine Kinase (26-192) U/L CK-MB (CK-2) (0.5-3.6) ng/mL Troponin I (0.02-0.05) ng/mL B-Natriuretic Peptide (0-100) pg/mL Total Protein (6.4-8.2) g/dL Albumin (3.4-5.0) g/dL Lipase (73-393) U/L Beta-Hydroxybutyric Acd (0.00-0.39) mmol/L Urine Color (Yellw/Straw) Urine Clarity (Clear) Urine pH (5.0-8.5) Ur Specific [place] (1.002-1.035) Urine Protein (Neg-Trace) mg/dL Urine Glucose (UA) (Negative) mg/dL Urine Ketones (Negative) mg/dL Urine Occult Blood (Negative) Urine Nitrate (Negative) Urine Bilirubin (Negative) Urine Urobilinogen (Less than 2) mg/dL Ur Leukocyte Esterase (Negative) Urine WBC (0-5) /hpf Ur Squamous Epith Cells (0-5) /hpf Urine Bacteria (None) /hpf Hyaline Casts (0-3) /lpf Urine Mucus (Occasional) /lpf Micro UA Comment Ur Microscopic Review Urine Culture Comments Nasal Screen MRSA (PCR) (Negative) Imaging Data Radiologist's impression: Head CT 01/23/19 00:00 CONCLUSION: 1. No acute intracranial abnormality . . Chest X-Ray 01/23/19 00:18 CONCLUSION: No acute cardiopulmonary disease ECG Data Attestation: I personally reviewed and interpreted this ECG as follows: Interpretation: The patient had an EKG done on arrival. The patient's EKG reveals a sinus tachycardia rate of 123, QRS duration 101 ms, QTC [address] segment elevation. A left anterior fascicular block is noted. Discharge Plan Discharge Disposition Patient Disposition: ED Admit(ED Internal Use Only) Discharge Order Discharge Orders: ED Use Only Admit Order (Routine); Ordered 01/23/19 Ordered By: Lennie Buckley Discharge Details Diagnosis: DKA (diabetic ketoacidoses) Physicians Team ED Provider: Lennie Buckley Primary Care Provider: UNKNOWN, Attending Provider: Patricia Peraza Other Providers: Buzz Marti Status ED Status: Admitted Patient
[2019-01-23 00:36] LABS: Baso % (Auto) 0.2 % (0.0-2.0); Eos % (Auto) 0.1 % (0.0-4.0); Hematocrit 42.1 % (35.0-46.0); Hemoglobin 13.4 gm/dL (11.6-15.3); Lymph # (Auto) 1.9 th/mm3 (1.0-4.8); Lymph % (Auto) 12.6 % (9.0-44.0); Mean Corpuscular HGB Conc 31.9 % (32.0-36.0); Mean Corpuscular Hemoglobin 37.1 pg (27.0-34.0); Mean Corpuscular Volume 116.4 fL (80.0-100.0); Mean Platelet Volume 7.7 fL (7.0-11.0); Mono % (Auto) 6.4 % (0.0-8.0); Neut # (Auto) 12.4 th/mm3 (1.8-7.7); Neut % (Auto) 80.7 % (16.0-70.0); Platelet Count 364 th/mm3 (150-450); Red Blood Count 3.62 mil/mm3 (4.00-5.30); White Blood Count 15.3 th/mm3 (4.0-11.0)
[2019-01-23 01:06] LABS: Activated Partial Thrombo Time 26.5 sec (23.4-31.7); Prothrombin Time 9.9 sec (9.8-11.6)
[2019-01-23 01:15] LABS: Alanine Aminotransferase 31 U/L (10-53); Alkaline Phosphatase 111 U/L (45-117); Anion Gap 33 meq/L (5-15); Aspartate Aminotransferase 21 U/L (15-37); Beta Hydroxybutyric Acid 11.56 mmol/L (0.00-0.39); Blood Urea Nitrogen 40 mg/dL (7-18); Calcium 8.3 mg/dL (8.5-10.1); Carbon Dioxide 7.9 meq/L (21.0-32.0); Chloride 81 meq/L (98-107); Glomerular Filtration Rate 16 mL/min (>89); Lipase 283 U/L (73-393); Magnesium 1.9 mg/dL (1.5-2.5); Potassium 5.5 meq/L (3.5-5.1); Total Protein 6.8 g/dL (6.4-8.2)
[2019-01-23 01:17] LABS: Sodium 122 meq/L (136-145)
[2019-01-23 01:18] LABS: Creatine Kinase 58 U/L (26-192); Glucose,Random 908 mg/dL (74-106)
[2019-01-23] MEDS: Sod Chloride 0.9% Inj 1,000 ML IV.CONT SCH ×6 (01:21→19:00)
--- NOTE | 2019-01-23 01:26 | XR ---
EXAM DATE: 01/23/2019 1:03 AM EST AGE/SEX: 58 years / Female INDICATIONS: Abdomen pain today. CLINICAL DATA: This is the patient's initial encounter. Patient reports that signs and symptoms have been present for 1 day and indicates a pain score of 4/10. MEDICAL/SURGICAL HISTORY: Diabetes. None. [place] [facility] [place]. . FINDINGS: A single AP view of the chest demonstrates the lungs to be symmetrically aerated without evidence of mass, infiltrate or effusion. The cardiomediastinal contours are unremarkable. Osseous structures a re intact. CONCLUSION: No acute cardiopulmonary disease Electronically signed by: Lamont Faulkner MD Board Certified Radiologist 01/23/2019 1:25 AM EST
[2019-01-23 01:46] LABS: Burr Cells 1+; Platelet Estimate Normal (Normal); Platelet Morphology Normal (Normal)
[2019-01-23] MEDS ORDERED: Acetaminophen 325 MG Tablet PO PRN (02:36)
[2019-01-23] MEDS ORDERED: Bisacodyl 10 MG Supp RECTAL PRN (02:36)
--- NOTE | 2019-01-23 02:41 | P.HPCC ---
History of Present Illness Service: Critical care Primary Care Physician: UNKNOWN Chief Complaint: Hyperglycemia History of Present Illness: 58yF who presented to the emergency department complaining of hyperglycemia, polyuria/ polydipsia, and "not feeling well" x 1 day. She has a history of IDDM on an insulin pump and says that around 3 AM yesterday she had a glucose of 45, but later on in the morning it was >250. She reports chills, generalized weakness, nausea, several episodes of vomiting, and malaise. The patient arrived to the ED tachypneic with Kussmaul respirations and confusion, found to have a glucose of 900 with elevated anion gap acidosis, lactic acidosis, and elevated beta hydroxybutyrate. Critical care service was consulted for admission for DKA. Of note, the patient also reports that she drinks several alcoholic drinks daily , last drink >24 hours ago. - Diagnosis (1) DKA (diabetic ketoacidosis) (2) Acute kidney injury (3) Acute encephalopathy (4) Alcohol withdrawal (5) Lactic acidosis (6) Elevated troponin Inpatient Certification: I certify that the inpatient services were ordered in accordance with Medicare regulations governing the order. This includes certification that hospital inpatient services are reasonable and necessary and in the case of services not specified as inpatient-only under 42 CFR 419.22(n), that they are appropriately provided as inpatient services in accordance to with the 2-midnight benchmark under 43 CFR 412.3(e) Estimated Total Length of Stay (Days): 3 Plans for Post Hospital Care: Home Review of Systems unobtainable due to mental status PMFSH - History History Provided By: Patient, [employer] / EMT - Medical History Medical History: Medical History (Last Reviewed 01/23/19 @ 02:55 by Patricia Peraza DO) Anxiety Cataract Depression Diabetes Fibromyalgia H/O: hysterectomy High cholesterol Hypertension Hypothyroidism - Surgical History Surgical History: Surgical History (Last Reviewed 01/23/19 @ 02:55 by Patricia Peraza DO) H/O foot surgery History of back surgery - Social History I have reviewed the patient's Social History: Yes - Tobacco History Second Hand Smoke Exposure: Yes Tobacco Use In Past 30 Days: Yes Smoking Status: Current every day smoker Tobacco Type: Cigarettes - Alcohol History How Often Do You Have a Drink Containing Alcohol: 4 or more times a week - Substance Use History Substance History: Active Abuse - Substance Use Type Marijuana Status: Active Route Used: By Mouth, Inhalation Reason for Use: Feels Good - Travel History Recent Travel in the [place] Within the Last 8 Weeks: No Recent Travel Out of the Country Within the Last 8 Weeks: No - Immunization History Tetanus Immunization: Unsure Medications and Allergies Active Medications: Active Medications Acetaminophen (Tylenol) 650 mg PO Q6H PRN PRN Reason: PAIN 1-10 AND/OR FEVER >101F Al Hydroxide/Mg Hydroxide (Milk Of Inderjit Green) 30 ml PO Q12H PRN PRN Reason: Mild Constipation Albuterol (Duoneb Neb (Prn)) 1 ampul NEB Q2HR NEB PRN PRN Reason: WHEEZING Bisacodyl (Dulcolax Supp) 10 mg RECTAL DAILY PRN PRN Reason: SEVERE CONSITIPATION Chlorhexidine Gluconate (Chlorhexidine 2% Cloth) 3 pack TOPICAL DAILY@0400 MICKIE Stop: 01/28/19 03:59 Chlorhexidine Gluconate (Chlorhexidine 2% Cloth) 3 pack TOPICAL DAILY@0400 PRN PRN Reason: Extra cloth needed Stop: 01/28/19 03:59 Famotidine (Pepcid) 20 mg PO BID MICKIE Famotidine (Pepcid Pf Inj) 20 mg IV.PUSH Q12HR MICKIE Heparin Sodium (Porcine) (Heparin Inj) 5,000 units SQ Q8H MICKIE Dextrose/Sodium Chloride (D5w/Normal Saline Inj) 1,000 mls @ 200 mls/hr IV.CONT .Q5H MICKIE Insulin Human Regular 100 unit (/ Sodium Chloride) 100 mls @ 6 mls/hr IV.CONT TITRATE PRN; Protocol PRN Reason: Per Protocol Last Admin: 01/23/19 01:30 Dose: 6 units/hr, 6 mls/hr Potassium Chloride (Kcl 20 Meq Premix Inj) 20 meq in 100 mls @ 100 mls/hr IV.SIG Q1H PRN PRN Reason: for K+ 4.5 to 5 Potassium Chloride (Kcl 20 Meq Premix Inj) 20 meq in 100 mls @ 50 mls/hr IV.SIG Q2H PRN PRN Reason: for K+ 4.5 to 5 Potassium Chloride (Kcl 20 Meq Premix Inj) 20 meq in 100 mls @ 100 mls/hr IV.SIG Q1H PRN PRN Reason: for K+ 3.5 to 4.4 Potassium Chloride (Kcl 20 Meq Premix Inj) 20 meq in 100 mls @ 50 mls/hr IV.SIG Q2H PRN PRN Reason: for K+ 3.5 to 4.4 Potassium Chloride (Kcl 40 Meq Premix Inj) 40 meq in 100 mls @ 100 mls/hr IV.SIG Q1H PRN PRN Reason: for Initial K+ ONLY < 3.5 Potassium Chloride (Kcl 20 Meq Premix Inj) 20 meq in 100 mls @ 50 mls/hr IV.SIG Q2H PRN PRN Reason: for Subsequent K+ < 3.5 Potassium Chloride (Kcl 40 Meq Premix Inj) 40 meq in 100 mls @ 50 mls/hr IV.SIG Q2H PRN PRN Reason: for Subsequent K+ < 3.5 Sodium Chloride (Ns Inj) 1,000 mls @ 250 mls/hr IV.CONT .Q4H MICKIE Last Admin: 01/23/19 01:21 Dose: 250 mls/hr Sodium Phosphate 15 mmol/ (Sodium Chloride) 105 mls @ 25 mls/hr IV.SIG UNSCH PRN PRN Reason: for Phosphate Level < 1.0 Potassium Chloride (Kcl 20 Meq Premix Inj) 20 meq in 100 mls @ 50 mls/hr IV.SIG Q2H PRN PRN Reason: for Initial K+ ONLY < 3.5 Lactulose (Lactulose Liq) 30 ml PO DAILY PRN PRN Reason: SEVERE CONSITIPATION Ondansetron HCl (Zofran Inj) 4 mg IV.PUSH Q6H PRN PRN Reason: NAUSEA OR VOMITING Senna/Docusate Sodium (Joanna-Colace) 1 tab PO BID [facility] Sennosides (Senokot) 17.2 mg PO Q12H PRN PRN Reason: Moderate Constipation Sodium Bicarbonate (Sodium Bicarbonate 8.4% Inj) 100 meq IV.PUSH UNSCH PRN PRN Reason: for pH less than 6.9 Sodium Bicarbonate (Sodium Bicarbonate 8.4% Inj) 50 meq IV.PUSH UNSCH PRN PRN Reason: for pH 6.9 to 7.0 Sodium Chloride (Ns Flush) 2 ml IV.FLUSH UNSCH PRN PRN Reason: FLUSH AFTER USING IV ACCESS Sodium Chloride (Ns Flush) 2 ml IV.FLUSH BID MICKIE Sodium Chloride (Ns Flush) 2 ml IV.FLUSH PRN PRN PRN Reason: FLUSH AFTER USING IV ACCESS Allergies Allergy/AdvReac Type Severity Reaction Status Date / Time No Known Allergies Allergy Verified 01/23/19 00:18 Home Medications Medication Instructions Recorded Confirmed Type Unable to Obtain Home Meds 01/23/19 01/23/19 History Results - Labs CBC & Chem 7: 01/23/19 00:20 01/23/19 02:30 Labs: Short CBC 01/23/19 Range/Units 00:20 WBC 15.3 H (4.0-11.0) th/mm3 Hgb 13.4 (11.6-15.3) gm/dL Hct 42.1 (35.0-46.0) % Plt Count 364 (150-450) th/mm3 BMP 01/23/19 00:20 Sodium 122 L* Potassium 5.5 H Chloride 81 L Carbon Dioxide 7.9 L BUN 40 H Creatinine 3.08 H Calcium 8.3 L Cardiac Enzymes 01/23/19 Range/Units 00:20 Total Creatine Kinase 58 (26-192) U/L Troponin I 0.10 H (0.02-0.05) ng/mL Liver Function 01/23/19 Range/Units 00:20 Total Bilirubin 0.6 (0.2-1.0) mg/dL AST 21 (15-37) U/L ALT 31 (10-53) U/L Alkaline Phosphatase 111 (45-117) U/L Albumin 4.0 (3.4-5.0) g/dL - Imaging Impressions Chest X-Ray 01/23/19 00:18 CONCLUSION: No acute cardiopulmonary disease - ABG ABG results: VBG-- 7.11/ 23/ 59/ 7/ -20.9 Attestation: I personally reviewed and interpreted this ABG as follows: Interpretation: Acute metabolic acidosis with partial respiratory compensation Exam Vital signs: Vital Signs 01/23/19 00:10 01/23/19 00:17 01/23/19 00:18 Pulse Rate 124 H 132 H 123 H Respiratory Rate 22 40 H Blood Pressure 117/51 L 111/56 L Pulse Oximetry 99 97 97 01/23/19 01:30 Pulse Rate 140 H Respiratory Rate 38 H Blood Pressure 121/58 L Pulse Oximetry 97 Intake & Output 01/22/19 01/22/19 01/23/19 06:59 18:59 06:59 Intake Total 1999 Output Total 350 / 350 Balance 1650 / 1650 Weight 63.503 kg Intake: IV 999 / 1000 NS Inj 1,000 ML @ Wide Open IV. 1000 / 1000 SIG BOLUS ONE Rx#:[id number] Pre-hospital ED Only 999 / 999 Output: Urine Amount (Catheter) 350 / 350 Straight 350 / 350 Narrative: GEN: Middle-aged female lying in bed, appears confused, tachypneic HEENT: PERRL, mucosa dry NECK: Trachea midline CARDIO: Tachy to 120s, regular PULM: Kussmaul respirations noted, O2 sats mid 90s on room air, no wheezing or rhonchi, speaking in complete sentences ABD/GI: Soft, non-tender in all quadrants, non-distended. Insulin pump removed from left lower abdomen. EXT/MSK: No peripheral edema SKIN: Warm and dry NEURO: Oriented to person, place, and time but rambling speech, requires frequent redirection, appears confused, poor historian. Mild tremor and tongue fasciculations noted. PSYCH: No current agitation Caprini VTE Risk Assessment Caprini VTE Risk Assessment: No/Low Risk (score <= 1) Caprini Risk Assessment Model: Point Value = 1 Point Value = 2 Point Value = 3 Point Value = 5 Age 41-60 Minor surgery BMI > 25 kg/m2 Swollen legs Varicose veins or History of unexplained or recurrent spontaneous Oral contraceptives or hormone replacement Sepsis (< 1 month) Serious lung disease, including pneumonia (< 1 month) Abnormal pulmonary function Acute myocardial infarction Congestive heart failure (< 1 month) History of inflammatory bowel disease Medical patient at bed rest Age 61-74 Arthroscopic surgery Major open surgery (> 45 min) Laparoscopic surgery (> 45 min) Malignancy Confined to bed (> 72 hours) Immobilizing plaster cast Central venous access Age >= 75 History of VTE Family history of VTE Factor V Leiden Prothrombin [id number] Lupus anticoagulant Anticardiolipin antibodies Elevated serum homocysteine Heparin-induced thrombocytopenia Other congenital or acquired thrombophilia Stroke (< 1 month) Elective arthroplasty Hip, pelvis, or leg fracture Acute spinal cord injury (< 1 month) Prophylaxis Regimen: Total Risk Factor Score Risk Level Prophylaxis Regimen 0-1 Low Early ambulation 2 Moderate Order ONE of the following: *Sequential Compression Device (SCD) *Heparin 5000 units SQ BID 3-4 Higher Order ONE of the following medications: *Heparin 5000 units SQ TID *Enoxaparin/Lovenox 40 mg SQ daily (WT < 150 kg, CrCl > 30 mL/min) *Enoxaparin/Lovenox 30 mg SQ daily (WT < 150 kg, CrCl > 10-29 mL/min) *Enoxaparin/Lovenox 30 mg SQ BID (WT < 150 kg, CrCl > 30 mL/min) AND/OR *Sequential Compression Device (SCD) 5 or more Highest Order ONE of the following medications: *Heparin 5000 units SQ TID (Preferred with Epidurals) *Enoxaparin/Lovenox 40 mg SQ daily (WT < 150 kg, CrCl > 30 mL/min) *Enoxaparin/Lovenox 30 mg SQ daily (WT < 150 kg, CrCl > 10-29 mL/min) *Enoxaparin/Lovenox 30 mg SQ BID (WT < 150 kg, CrCl > 30 mL/min) AND *Sequential Compression Device (SCD) Assessment and Plan - Problem List (1) DKA (diabetic ketoacidosis) Code(s): E13.10 - Other specified diabetes mellitus with ketoacidosis without coma Status: Acute (2) Acute kidney injury Code(s): N17.9 - Acute kidney failure, unspecified Status: Acute (3) Acute encephalopathy Code(s): G93.40 - Encephalopathy, unspecified Status: Acute (4) Alcohol withdrawal Code(s): F10.239 - Alcohol dependence with withdrawal, unspecified Status: Acute (5) Lactic acidosis Code(s): E87.2 - Acidosis Status: Acute (6) Elevated troponin Code(s): R74.8 - Abnormal levels of other serum enzymes Status: Acute - Assessment and Plan Plan: 58yF presenting with acute encephalopathy, DKA, acute kidney injury, elevated troponin NEURO: Acute encephalopathy Alcohol withdrawal -CIWA protocol, monitor for signs of worsening withdrawal or delirium tremens -[facility] pending -Frequent neuro checks -Thiamine supplementation CARDIO: Elevated troponin Sinus tachycardia -EKG showed no ischemic changes, trop 0.10, likely secondary to demand ischemia and REZA -Continue to trend trops -Cardiac monitoring -Continue IVF and CIWA protocol PULM: Kussmaul respirations Tobacco use disorder -Secondary to DKA, continue supportive care -Monitor for signs of respiratory fatigue -Nebs PRN -CXR shows no infiltrate -Nicotine patch, skilled nursing facility counselor patient on importance of smoking cessation F/E/N, RENAL: Acute kidney injury Severe dehydration Pseudohyponatremia due to hyperglycemia Lactic acidosis -NPO -Creat up to 3.0 today, most recent previous labs were from 2010 when creat was 1.1 -Continue fluid resuscitation and lyte repletion as per DKA protocol -Monitor Is and Os, patient does not need a Rehman catheter as she is able to use a bedpan -Corrected sodium is 141 using the Pita formula, expected due to hyperglycemia -Continue to trend lactic acid ENDO: Diabetic ketoacidosis Acute metabolic acidosis -DKA protocol- continue fluid resuscitation, lyte repletion, insulin gtt -Continue current fluids until glucose is <250, then change to dextrose- containing fluids -Check labs q6h until anion gap closes, then switch insulin gtt to SSI and start diabetic diet -Will eventually need to be transitioned back to insulin pump as she uses that at baseline ID: -Rule out UTI -No infiltrate noted on CXR -No other obvious signs of infection currently PROPHY: -SCDs, SQH -PPI OVERALL: This patient is critically ill and requires ICU level of care. She is at high risk for decompensation. Of note, the patient is unsure of what home meds she takes-- these will need to be clarified in AM. Counseling/ Coordination of Care: This patient is critically ill with impairment of one or more vital organ systems with a high probability of imminent or life-threatening deterioration. High-complexity medical decision making was required to support vital organ function and/ or prevent deterioration of the patient's condition. Total critical care time spent is 55 minutes giving full attention to this patient. This includes examining the patient, gathering history from someone other than the patient (i.e. chart review), discussing the patient's care with other providers, managing the patient's insulin drip, ordering and interpreting radiologic studies, ordering and interpreting laboratory values, managing the patient's sedation/ CIWA requirements, re-evaluation at frequent intervals, and documentation. Amount of time is separate from teaching, counseling the patient and/or family, and exclusive of procedures. Code Status: Full
[2019-01-23] MEDS ORDERED: LORazepam 1 MG Tablet PO PRN (02:51)
[2019-01-23] MEDS ORDERED: Haloperidol Inj 5 MG/ML Ampul IV.PUSH PRN (02:51)
[2019-01-23 02:53] LABS: Bacteria,Urine Rare /hpf; Bilirubin,Urine Negative (Negative); Clarity,Urine Hazy (Clear); Color,Urine Yellow (Yellw/Straw); Glucose,Urine (UA) 500 or Greater mg/dL (Negative); Hyaline Casts,Urine 56 /lpf (0-3); Leukocyte Esterase,Urine Negative (Negative); Mucus,Urine Few /lpf (Occasional); Nitrite,Urine Negative (Negative); Specific Gravity,Urine 1.012 (1.002-1.035); Squamous Epithelial Cell,Urine 1 /hpf (0-5)
[2019-01-23] MEDS: Heparin - SQ 10,000 UNITS/ML Vial SQ SCH ×3 (02:57→19:00)
[2019-01-23] MEDS: Thiamine Inj 100 MG in Sodium Chlor 0.9% Inj 100 ML IV.SIG SCH ×2 (03:08→08:51)
[2019-01-23] MEDS ORDERED: Chlorhexidine Gluconate 2% 1 Pack (2 Cloths) TOPICAL PRN (04:00)
--- NOTE | 2019-01-23 04:26 | CT ---
EXAM DATE: 01/23/2019 4:15 AM EST AGE/SEX: 58 years / Female INDICATIONS: Altered mental status. CLINICAL DATA: This is the patient's initial encounter. Patient reports that signs and symptoms have been present for 1 day and indicates a pain score of Nonresponsive. MEDICAL/SURGICAL HISTORY: Diabetes. Hypertension. Hypothyroidism. Hysterectomy. RADIATION DOSE: 56.35 CTDI (mGy) COMPARISON: [facility], CTA BRAIN W 3D RECON, 11/03/2011. . TECHNIQUE: CT of the head without contrast. Using automated exposure control and adjustment of the mA and/or kV according to patient size, radiation dose was kept as low as reasonably achievable to ob tain optimal diagnostic quality images. DICOM format image data is available electronically for revi ew and comparison. FINDINGS: Cerebrum: The ventricles are normal for age. No evidence of midline shift, mass lesion, hemorrhage or acute infarction. No extraaxial fluid collections are seen. Posterior Fossa: The cerebellum and brainstem are intact. The 4th ventricle is midline. The cerebe llopontine angle is unremarkable. Extracranial: The visualized portion of the orbits is intact. Skull: The calvaria is intact. No evidence of skull fracture. CONCLUSION: 1. No acute intracranial abnormality . . Electronically signed by: Lamont Faulkner MD Board Certified Radiologist 01/23/2019 4:25 AM EST
[2019-01-23 05:26] LABS: Beta Hydroxybutyric Acid 6.22 mmol/L (0.00-0.39); Calcium 7.9 mg/dL (8.5-10.1); Carbon Dioxide 17.9 meq/L (21.0-32.0); Magnesium 1.9 mg/dL (1.5-2.5); Phosphorus 2.4 mg/dL (2.5-4.9); Potassium 4.1 meq/L (3.5-5.1); Troponin I 0.45 ng/mL (0.02-0.05)
[2019-01-23] MEDS: Potassium Chlor 20 mEq Premix 20 MEQ/100 ML PIGGYBACK IV.SIG PRN ×2 (05:37→08:14)
[2019-01-23] MEDS: Dextrose 5%/NaCl 0.9% Inj 1,000 ML IV.CONT SCH ×5 (06:50→16:05)
[2019-01-23] MEDS: Chlorhexidine Gluconate 2% 1 Pack (2 Cloths) TOPICAL SCH (08:50)
[2019-01-23] MEDS: Famotidine PF Inj 20 MG/2 ML Vial IV.PUSH SCH (08:51)
[2019-01-23] MEDS: Senna/Docusate Sodium 8.6/50 MG Tablet PO SCH ×2 (09:03→21:05)
[2019-01-23] MEDS: Famotidine 20 MG Tablet PO SCH (09:06)
--- NOTE | 2019-01-23 12:34 | ECG ---
Date Performed: 01/23/2019 Time Performed: 00:19:30 PTAGE: 58 years EKG: SINUS TACHYCARDIA LEFT ANTERIOR FASCICULAR BLOCK Compared to previous tracing rate has incr eased significantly and is associated with nonspecific ST T wave changes Clinical correlation is agustin mmended ABNORMAL ECG PREVIOUS TRACING : 12/22/2017 07.42 DOCTOR: Roldan Ho Interpretating Date/Time 01/23/2019 12:32:30
[2019-01-23 14:14] LABS: Calcium 8.1 mg/dL (8.5-10.1); Carbon Dioxide 23.2 meq/L (21.0-32.0); Magnesium 1.9 mg/dL (1.5-2.5); Phosphorus 1.8 mg/dL (2.5-4.9); Potassium 4.2 meq/L (3.5-5.1)
[2019-01-23 14:15] LABS: Troponin I 1.87 ng/mL (0.02-0.05)
[2019-01-23] MEDS ORDERED: Dextrose 50% in Water 50 ML Vial IV.PUSH PRN (14:16)
[2019-01-23] MEDS ORDERED: Aspirin 325 MG Tablet PO STA (14:31)
[2019-01-23 14:39] LABS: Creatine Kinase 111 U/L (26-192)
[2019-01-23] MEDS: Insulin Detemir Inj 1,000 UNIT/10 ML Vial SQ SCH (14:40)
[2019-01-23 14:54] LABS: Creatine Kinase MB 3.9 ng/mL (0.5-3.6)
[2019-01-23] MEDS: Insulin NovoLIN Regular Correctional Sugar Inj SQ SCH ×2 (16:46→21:17)
[2019-01-24] MEDS: Sod Chloride 0.9% Inj 1,000 ML IV.CONT SCH ×7 (00:47→23:22)
[2019-01-24 02:05] LABS: Calcium 8.4 mg/dL (8.5-10.1); Carbon Dioxide 23.3 meq/L (21.0-32.0); Magnesium 1.6 mg/dL (1.5-2.5); Phosphorus 1.8 mg/dL (2.5-4.9); Potassium 3.2 meq/L (3.5-5.1)
[2019-01-24 02:07] LABS: Troponin I 1.38 ng/mL (0.02-0.05)
[2019-01-24] MEDS: Heparin - SQ 10,000 UNITS/ML Vial SQ SCH ×3 (02:43→21:21)
[2019-01-24] MEDS: Insulin NovoLIN Regular Correctional Sugar Inj SQ SCH ×5 (02:44→21:26)
[2019-01-24] MEDS: Chlorhexidine Gluconate 2% 1 Pack (2 Cloths) TOPICAL SCH (05:41)
[2019-01-24 06:05] LABS: Baso # (Auto) 0.1 th/mm3 (0.0-0.2); Baso % (Auto) 0.9 % (0.0-2.0); Eos % (Auto) 0.2 % (0.0-4.0); Hematocrit 39.9 % (35.0-46.0); Hemoglobin 13.9 gm/dL (11.6-15.3); Lymph # (Auto) 2.8 th/mm3 (1.0-4.8); Lymph % (Auto) 21.1 % (9.0-44.0); Mean Corpuscular Hemoglobin 38.2 pg (27.0-34.0); Mean Corpuscular Volume 109.3 fL (80.0-100.0); Mean Platelet Volume 6.8 fL (7.0-11.0); Mono # (Auto) 0.5 th/mm3 (0.0-0.9); Mono % (Auto) 4.1 % (0.0-8.0); Neut # (Auto) 9.7 th/mm3 (1.8-7.7); Neut % (Auto) 73.7 % (16.0-70.0); Platelet Count 299 th/mm3 (150-450); Red Blood Count 3.65 mil/mm3 (4.00-5.30); Red Cell Distribution Width 14.6 % (11.6-17.2); White Blood Count 13.2 th/mm3 (4.0-11.0)
[2019-01-24] MEDS: Insulin Detemir Inj 1,000 UNIT/10 ML Vial SQ SCH (08:57)
[2019-01-24] MEDS: Thiamine Inj 100 MG in Sodium Chlor 0.9% Inj 100 ML IV.SIG SCH (08:58)
[2019-01-24] MEDS: Senna/Docusate Sodium 8.6/50 MG Tablet PO SCH ×2 (09:01→21:21)
[2019-01-24] MEDS: Famotidine PF Inj 20 MG/2 ML Vial IV.PUSH SCH (09:01)
[2019-01-24] MEDS: Famotidine 20 MG Tablet PO SCH (09:05)
[2019-01-24] MEDS ORDERED: Lisinopril 5 MG Tablet PO SCH (09:15)
[2019-01-24] MEDS: Sertraline 50 MG Tablet PO SCH (09:24)
[2019-01-24] MEDS: Metoprolol Tartrate 50 MG Tablet PO SCH ×2 (09:24→21:21)
[2019-01-24] MEDS ORDERED: hydrALAZINE HCl Inj 20 MG/ML Vial IV.PUSH PRN (10:46)
[2019-01-24] MEDS ORDERED: Lidocaine 2% 100 MG/5 ML Syringe IV.PUSH ONE (10:47)
[2019-01-24] MEDS ORDERED: Potassium Phosphate Inj 15 MMOL in Sodium Chlor 0.9% Inj 150 ML IV.SIG ONE (11:00)
--- NOTE | 2019-01-24 12:16 | P.PNIM ---
Subjective Interval history: 58yo f admitted with DKA states her insulin pump had run out of insulin and she was feeling to sick to get it filled, she has had uncontrolled blood pressures, DT symptoms and elevated troponin w no cardiac history, patient has had prior stress test thru health dept in the past pt seen and examined, doing better after given ativan, per nursing she was very restless and agitated all day Physical Exam Vital signs: Vital Signs 01/23/19 12:31 01/23/19 13:00 01/23/19 13:19 Temperature Pulse Rate 99 H 96 H 105 H Respiratory Rate 29 H 28 H 39 H Blood Pressure 107/53 L 139/63 Pulse Oximetry 100 99 100 01/23/19 13:31 01/23/19 13:44 01/23/19 14:00 Temperature Pulse Rate 103 H 101 H 102 H Respiratory Rate 29 H 22 22 Blood Pressure 139/65 120/56 L Pulse Oximetry 99 100 98 01/23/19 14:01 01/23/19 14:31 01/23/19 15:00 Temperature Pulse Rate 104 H 108 H 123 H Respiratory Rate 27 H 46 H 27 H Blood Pressure 124/60 125/60 Pulse Oximetry 99 100 100 01/23/19 15:31 01/23/19 16:00 01/23/19 16:01 Temperature Pulse Rate 117 H 122 H 123 H Respiratory Rate 35 H 40 H 39 H Blood Pressure 112/53 L 119/58 L Pulse Oximetry 100 100 100 01/23/19 16:31 01/23/19 17:00 01/23/19 17:01 Temperature Pulse Rate 117 H 109 H 108 H Respiratory Rate 24 29 H 29 H Blood Pressure 116/57 L 110/49 L Pulse Oximetry 100 98 99 01/23/19 17:31 01/23/19 18:00 01/23/19 18:01 Temperature Pulse Rate 99 H 109 H 107 H Respiratory Rate 25 H 34 H 25 H Blood Pressure 132/61 140/62 Pulse Oximetry 100 95 100 01/23/19 19:00 01/23/19 19:01 01/23/19 19:31 Temperature Pulse Rate 101 H 101 H 106 H Respiratory Rate 35 H 33 H 35 H Blood Pressure 175/74 H 172/120 H Pulse Oximetry 100 100 100 01/23/19 19:40 01/23/19 20:00 01/23/19 20:01 Temperature 98.6 F Pulse Rate 103 H 95 H 97 H Respiratory Rate 32 H 17 24 Blood Pressure 177/93 H 153/67 H Pulse Oximetry 100 99 100 01/23/19 20:30 01/23/19 20:31 01/23/19 21:00 Temperature Pulse Rate 96 H 133 H Respiratory Rate 23 56 H Blood Pressure 164/78 H Pulse Oximetry 100 100 100 01/23/19 21:01 01/23/19 21:06 01/23/19 21:31 Temperature Pulse Rate 128 H 98 H 106 H Respiratory Rate 50 H 32 H 41 H Blood Pressure 214/84 H 163/75 H 157/70 H Pulse Oximetry 100 100 97 01/23/19 22:00 01/23/19 22:01 01/23/19 22:31 Temperature Pulse Rate 90 91 H 87 Respiratory Rate 21 23 21 Blood Pressure 141/65 H 128/64 Pulse Oximetry 99 99 99 01/23/19 23:00 01/23/19 23:01 01/23/19 23:31 Temperature Pulse Rate 90 88 89 Respiratory Rate 23 22 25 H Blood Pressure 152/67 H 160/73 H Pulse Oximetry 99 100 96 01/24/19 00:00 01/24/19 00:01 01/24/19 00:31 Temperature 98.3 F Pulse Rate 89 89 109 H Respiratory Rate 24 26 H 37 H Blood Pressure 159/70 H 156/70 H Pulse Oximetry 99 99 99 01/24/19 01:00 01/24/19 01:01 01/24/19 01:31 Temperature Pulse Rate 90 88 84 Respiratory Rate 23 24 20 Blood Pressure 135/64 143/63 H Pulse Oximetry 100 99 97 01/24/19 02:00 01/24/19 02:01 01/24/19 02:31 Temperature Pulse Rate 82 80 78 Respiratory Rate 22 21 20 Blood Pressure 158/70 H 169/77 H Pulse Oximetry 98 98 100 01/24/19 03:00 01/24/19 03:01 01/24/19 03:53 Temperature Pulse Rate 100 H 93 H 92 H Respiratory Rate 39 H 27 H 26 H Blood Pressure 192/75 H 154/75 H Pulse Oximetry 96 100 01/24/19 04:00 01/24/19 04:09 01/24/19 04:31 Temperature Pulse Rate 87 89 78 Respiratory Rate 53 H 32 H 22 Blood Pressure 165/81 H 183/85 H Pulse Oximetry 100 100 100 01/24/19 04:41 01/24/19 05:00 01/24/19 05:01 Temperature Pulse Rate 80 80 79 Respiratory Rate 18 26 H 22 Blood Pressure 180/82 H 178/80 H Pulse Oximetry 98 96 97 01/24/19 05:31 01/24/19 06:00 01/24/19 06:01 Temperature Pulse Rate 78 95 H 86 Respiratory Rate 24 35 H 20 Blood Pressure 182/80 H 155/68 H Pulse Oximetry 100 100 99 01/24/19 06:31 01/24/19 07:00 01/24/19 07:01 Temperature Pulse Rate 80 98 H 82 Respiratory Rate 24 49 H 41 H Blood Pressure 159/70 H 207/81 H Pulse Oximetry 99 100 100 01/24/19 07:03 01/24/19 07:31 01/24/19 07:34 Temperature Pulse Rate 81 83 82 Respiratory Rate 33 H 25 H 25 H Blood Pressure 171/76 H 189/79 H 177/77 H Pulse Oximetry 100 96 97 01/24/19 08:00 01/24/19 08:01 01/24/19 08:04 Temperature Pulse Rate 84 83 Respiratory Rate 28 H 31 H Blood Pressure 211/89 H Pulse Oximetry 96 95 97 01/24/19 08:09 01/24/19 08:24 01/24/19 08:31 Temperature 98.2 F Pulse Rate 81 83 90 Respiratory Rate 19 44 H Blood Pressure 186/81 H 180/84 H Pulse Oximetry 96 100 01/24/19 08:41 01/24/19 09:25 01/24/19 09:31 Temperature Pulse Rate 88 Respiratory Rate 57 H Blood Pressure 202/86 H 213/92 H Pulse Oximetry 100 01/24/19 09:56 01/24/19 10:01 01/24/19 10:07 Temperature Pulse Rate Respiratory Rate Blood Pressure 170/98 H 197/91 H 195/91 H Pulse Oximetry 01/24/19 10:08 01/24/19 10:10 01/24/19 10:29 Temperature Pulse Rate 76 72 Respiratory Rate 30 H Blood Pressure 193/92 H Pulse Oximetry 99 96 01/24/19 10:31 01/24/19 10:35 01/24/19 11:00 Temperature Pulse Rate 73 77 71 Respiratory Rate 21 31 H 29 H Blood Pressure 191/86 H 184/89 H Pulse Oximetry 98 99 97 01/24/19 11:01 Temperature Pulse Rate 70 Respiratory Rate 29 H Blood Pressure 194/87 H Pulse Oximetry 96 Intake & Output 01/23/19 01/24/19 01/24/19 18:59 06:59 18:59 Intake Total 3722.5 / 3722.5 2500 / 2500 Output Total 2400 / 2400 Balance 1322.5 / 1322.5 2500 / 2500 Weight 67.5 kg Intake: IV 2342.5 / 2342.5 1999 D5W/Normal Saline Inj 1,000 ML 1999 @ 200 mls/hr IV.CONT .Q5H MICKIE Rx#:[id number] NovoLIN R (IV Infusion) 100 54 / 54 UNIT In NS Inj 99 ML @ 6 UNITS/ HR 6 mls/hr IV.CONT TITRATE PRN Rx#:[id number] NS Inj 1,000 ML @ 250 mls/hr IV 1999 .CONT .Q4H MICKIE Rx#:[id number] KCl 20 mEq Premix Inj 20 meq In 187.5 / 187.5 100 ml @ 50 mls/hr IV.SIG Q2H PRN Rx#:[id number] Thiamine Inj 100 MG In NS Inj 101 / 101 100 ML @ 100 mls/hr IV.SIG DAILY MICKIE Rx#:[id number] Oral 1380 / 1380 500 / 500 Output: Urine 1200 / 1200 Urine Amount (Catheter) 1200 / 1200 Straight 1200 / 1200 Other: # Voids 8 Date of Last Bowel Movement 01/22/19 01/22/19 01/22/19 # Bowel Movements 0 Narrative: wdwn 58yo w f awakes to verbal but sleeps easily, she is sedated heart s1s2 reg lung sclear no wrr abd soft nondt pos bs ext no edema, no calf tenderness Urinary Catheter Management Straight: Cath placed during this visit: yes Reason for continuing: Not indwelling catheter Insertion date: 01/23/19 Insertion time: 02:38 Results Labs CBC & Chem 7: 01/24/19 05:34 01/24/19 01:23 Labs: Microbiology 01/23/19 00:00 Blood - Peripheral Aerobic Blood Culture - Preliminary gram positive cocci 01/23/19 00:00 Blood - Peripheral Anaerobic Blood Culture - Preliminary No growth in 1 day 01/23/19 00:20 Blood - Peripheral Aerobic Blood Culture - Preliminary No growth in 1 day 01/23/19 00:20 Blood - Peripheral Anaerobic Blood Culture - Preliminary No growth in 1 day Assessment and Plan (1) DKA (diabetic ketoacidosis): Code(s): E13.10 - Other specified diabetes mellitus with ketoacidosis without coma Status: Acute (2) Acute kidney injury: Code(s): N17.9 - Acute kidney failure, unspecified Status: Acute (3) Acute encephalopathy: Code(s): G93.40 - Encephalopathy, unspecified Status: Acute (4) Alcohol withdrawal: Code(s): F10.239 - Alcohol dependence with withdrawal, unspecified Status: Acute (5) Lactic acidosis: Code(s): E87.2 - Acidosis Status: Acute (6) Elevated troponin: Code(s): R74.8 - Abnormal levels of other serum enzymes Status: Acute Plan DKA severe, on admit due to medical noncompliance - poor insulin pump candidate , cont long acting insulin and iss, education, diet BACTEREMIA - GPC on bc, will start vanco, no obvious source but she has several healed skin lesions 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, fu cx HYPOTHYROIDISM - cont synthroid ETOH WD / DTs - cont CIWA protocol, thiamine DIABETIC PERIPHERAL NEUROPATHY - on neurontin MALIGNANT HTN - cont bp control, prn hydralazine, cont home meds REZA due to dehydration 3.08 -->1.29 better post fluids, mild hypokalemia, replace po DYSLIPIDEMIA - resume statin, fu fastin lipids TROPONIN ELEVATION TYPE II NSTEMI - difficult to completely r/o cardiac, liekly due to reza and acute illness, but in a poorly controlled diabetic who smokes will go ahead and get cardiology consult , cont asa, and metoprolol , get echocardiogram, also in light of bacteremia to rule out vegetation TOBACCO ABUSE NICOTINE DEPENDENCE - nicoderm, cessation, nebs prn dvt prophylaxis - sc heparin dispo - home when stable. Progress Note: Quality VTE Deep Vein Thrombosis/Pulmonary Embolism Present on Admission: No _ (1) DKA (diabetic ketoacidosis) Qualifiers: Diabetes mellitus type: Diabetes mellitus complication detail: (2) Alcohol withdrawal Qualifiers: Complication of substance-induced condition:
[2019-01-24] MEDS ORDERED: Magnesium Oxide 400 MG Tablet PO ONE (13:00)
[2019-01-24] MEDS ORDERED: Regadenoson Inj 0.4 MG/5 ML Syringe IV.PUSH ONE (13:52)
--- NOTE | 2019-01-24 14:22 | MB ---
cc: Maksim Pop MD DATE: 01/24/2019 REASON FOR CONSULTATION: Abnormal troponin level. HISTORY OF PRESENT ILLNESS: The patient is a 58-year-old white female with a history of diabetes, fibromyalgia, hyperlipidemia, hypertension, hypothyroidism, who presented to the hospital with generalized weakness, fatigue, nausea, vomiting, markedly elevated blood sugars into the 800's. Troponin level was checked and found to be abnormal. The patient denies any recent chest pain. She has had somewhat progressively worsening shortness of breath for the past 2 years. The patient denies syncope, near syncope, palpitations, lightheadedness, pedal edema, paroxysmal nocturnal dyspnea. She has had diabetes for 25 years, and she states for the most part it has been under control. PAST MEDICAL HISTORY: 1. Diabetes. 2. Hyperlipidemia. 3. Hypertension. 4. Fibromyalgia. 5. Hypothyroidism. PAST SURGICAL HISTORY: 1. Hysterectomy. 2. Lumbar back surgery. 3. Right foot surgery many years ago. CARDIAC MEDICATIONS AT HOME: 1. Metoprolol succinate 50 mg daily. 2. Pravastatin 40 mg at bedtime. 3. Lisinopril 5 mg daily. ALLERGIES: NO KNOWN DRUG ALLERGIES. FAMILY HISTORY: There is no significant family history of early myocardial infarction. Her mother did undergo placement of an AICD. SOCIAL HISTORY: The patient smokes about a pack of cigarettes per day. She denies drug or alcohol abuse. REVIEW OF SYSTEMS: As in the history of present illness, otherwise negative or noncontributory. She also denies headache, abdominal pain, melena, dyspepsia, bright red blood per rectum, fevers. PHYSICAL EXAMINATION: VITAL SIGNS: Her blood pressure 194/87 with a pulse of 70, respirations 29. GENERAL: She is a well-developed, well-nourished white female, in no acute distress. NECK: Jugular venous pressure is normal. Carotid pulses are 2+ bilaterally and without bruits. CHEST: Reveals clear lungs schultz. CARDIAC: She has a regular rhythm and rate without S3, S4, or murmur. ABDOMEN: She has a soft, nontender abdomen. Bowel sounds are present. There is no definite hepatosplenomegaly. EXTREMITIES: Reveals no clubbing, cyanosis, or edema. DIAGNOSTIC DATA: EKG from 01/23/2019 at 12:19 a.m. shows sinus tachycardia, biatrial abnormality, diffuse T-wave peaking, consider ischemia. EKG from 01/23/2019 at 2:30 p.m. shows sinus tachycardia, nonspecific ST and T-wave abnormalities. Chest x-ray shows no acute disease. LABORATORY DATA: Includes WBC 13.2, hemoglobin 13.9, platelets 299. BUN 17, creatinine 1.29. Troponin 1.38, potassium 3.2. IMPRESSION: Slightly abnormal troponin level in this 58-year-old white female with a history of diabetes, hyperlipidemia, hypertension, tobacco abuse, admitted with diabetic ketoacidosis. Overall, I doubt the slight increase in troponin level is due to acute coronary syndrome. She has had no definite chest pain symptoms. On the other hand she does have a number of risk factors for coronary disease and her initial EKG did show some T-wave changes suggestive of ischemia, which have since resolved. There is no definite evidence for congestive heart failure. RECOMMENDATIONS: 1. Check a Lexiscan nuclear stress test. Unless it shows severe or extensive ischemia, would recommend medical therapy. 2. We will follow up when the nuclear stress test has been completed and if it shows significant abnormalities. MD CLAUDIA Huynh/christiano , 01:58 PM , 02:09 PM MTDErick
--- NOTE | 2019-01-24 16:18 | NM ---
EXAM DATE: 01/24/2019 4:15 PM EST AGE/SEX: 58 years / Female INDICATIONS:Angina. . Substernal chest pain. CLINICAL DATA: This is the patient's initial encounter. Patient reports that signs and symptoms have been present for 1 day and indicates a pain score of 4/10. MEDICAL/SURGICAL HISTORY: Diabetes mellitus type II. Hypertension. Hypothyroidism. Hysterecto my. COMPARISON: No prior exams available for comparison. DOSE: 8.5 mCi Tc 99m Myoview at rest 27.1 mCi [id number] at stress 0.4 mg Lexiscan STRESS SYMPTOMS: Dyspnea, tightness in the anus, diaphoresis, headache and nausea. EJECTION FRACTION: 70 % TECHNIQUE: The patient underwent pharmacologic stress with infusion of prescribed dose. Continuous ECG tracing was monitored during stress. Gated SPECT imaging was performed after stress and conventi onal SPECT imaging was performed at rest. The examination was performed on a SPECT/CT scanner, both attenuation and non-corrected datasets were reviewed. FINDINGS: Distribution: The maximum perfused segment at stress is in the anterolateral wall. Perfusion Study: The pattern of perfusion at stress is within normal limits. Gated Study: There are intact wall motion and wall thickening without hypokinetic or dyskinetic segm ents. The ejection fraction is calculated at 70%. RISK CATEGORY: Low (<1% Annual Mortality Rate) CONCLUSION: 1. Negative examination. Electronically signed by: Reggie Spence MD Board Certified Radiologist 01/24/2019 4:17 PM EST
[2019-01-24] MEDS ORDERED: Vancomycin Consult Pharmacy OTHER PRN (17:10)
[2019-01-24] MEDS: Vancomycin Inj 1,000 MG in Sodium Chlor 0.9% Inj 250 ML IV.SIG SCH (18:46)
--- NOTE | 2019-01-24 20:41 | ECG ---
Date Performed: 01/23/2019 Time Performed: 14:30:00 PTAGE: 58 years EKG: Sinus tachycardia. Extensive ST-T changes are nonspecific Borderline ECG PREVIOUS TRACING : 01/23/2019 00.19 Since the previous tracing, no significant change noted DOCTOR: Philomena Mcleod Interpretating Date/Time 01/24/2019 20:39:58
[2019-01-24] MEDS: OXcarbazepine 150 MG Tablet PO SCH (21:20)
[2019-01-24] MEDS: Gabapentin 300 MG Capsule PO SCH (21:21)
[2019-01-25] MEDS: hydrALAZINE 50 MG Tablet PO PRN (00:51)
[2019-01-25] MEDS: Sod Chloride 0.9% Inj 1,000 ML IV.CONT SCH ×7 (00:52→23:34)
[2019-01-25] MEDS: Chlorhexidine Gluconate 2% 1 Pack (2 Cloths) TOPICAL SCH (04:16)
[2019-01-25] MEDS: Insulin NovoLIN Regular Correctional Sugar Inj SQ SCH ×5 (04:21→21:06)
[2019-01-25] MEDS: Levothyroxine 125 MCG Tablet PO SCH (05:54)
[2019-01-25 06:50] LABS: Baso % (Auto) 0.4 % (0.0-2.0); Eos % (Auto) 0.2 % (0.0-4.0); Hematocrit 38.5 % (35.0-46.0); Hemoglobin 13.5 gm/dL (11.6-15.3); Lymph # (Auto) 1.7 th/mm3 (1.0-4.8); Lymph % (Auto) 23.1 % (9.0-44.0); Mean Corpuscular Hemoglobin 38.1 pg (27.0-34.0); Mean Corpuscular Volume 108.9 fL (80.0-100.0); Mono # (Auto) 0.4 th/mm3 (0.0-0.9); Neut # (Auto) 5.1 th/mm3 (1.8-7.7); Neut % (Auto) 70.3 % (16.0-70.0); Platelet Count 273 th/mm3 (150-450); Red Blood Count 3.54 mil/mm3 (4.00-5.30); Red Cell Distribution Width 14.6 % (11.6-17.2); White Blood Count 7.3 th/mm3 (4.0-11.0)
[2019-01-25 07:14] LABS: Calcium 8.2 mg/dL (8.5-10.1); Carbon Dioxide 23.6 meq/L (21.0-32.0); Chol/HDL Ratio 1.62 Ratio; HDL Cholesterol 90.1 mg/dL (40.0-60.0); Potassium 4.2 meq/L (3.5-5.1)
[2019-01-25] MEDS: Lisinopril 5 MG Tablet PO SCH (08:05)
[2019-01-25] MEDS: Sertraline 50 MG Tablet PO SCH (08:05)
[2019-01-25] MEDS: Heparin - SQ 10,000 UNITS/ML Vial SQ SCH ×2 (08:06→21:06)
[2019-01-25] MEDS: OXcarbazepine 150 MG Tablet PO SCH ×2 (08:07→21:05)
[2019-01-25] MEDS: Metoprolol Tartrate 50 MG Tablet PO SCH ×2 (08:08→21:05)
[2019-01-25] MEDS: Famotidine 20 MG Tablet PO SCH (09:51)
[2019-01-25] MEDS: Gabapentin 300 MG Capsule PO SCH ×2 (09:51→21:05)
[2019-01-25] MEDS: Senna/Docusate Sodium 8.6/50 MG Tablet PO SCH ×2 (09:51→21:05)
[2019-01-25] MEDS: Insulin Detemir Inj 1,000 UNIT/10 ML Vial SQ SCH (09:53)
--- NOTE | 2019-01-25 12:57 | P.PNIM ---
Subjective Interval history: Patient laying in bed. no acute distress. She wants to go home. Physical Exam Vital signs: Vital Signs 01/24/19 13:00 01/24/19 13:01 01/24/19 16:15 Temperature Pulse Rate 77 81 Respiratory Rate 28 H 25 H Blood Pressure 171/72 H Pulse Oximetry 97 97 91 L 01/24/19 16:16 01/24/19 17:00 01/24/19 19:00 Temperature 98.7 F Pulse Rate 81 Respiratory Rate 68 H Blood Pressure 155/81 H Pulse Oximetry 100 99 96 01/24/19 20:00 01/25/19 00:00 01/25/19 02:47 Temperature 97.9 F 98.4 F 97.9 F Pulse Rate 80 65 80 Respiratory Rate 20 18 18 Blood Pressure 179/92 H 179/86 H 142/72 H Pulse Oximetry 97 98 96 01/25/19 08:00 01/25/19 12:00 Temperature 98.6 F 98.5 F Pulse Rate 82 67 Respiratory Rate 17 17 Blood Pressure 184/78 H 157/78 H Pulse Oximetry 96 97 Intake & Output 01/24/19 01/25/19 01/25/19 18:59 06:59 18:59 Intake Total 2591 / 2591 1000 / 1000 Balance 2591 / 2591 1000 / 1000 Weight 63.2 kg Intake: IV 2351 / 2351 1000 / 1000 NS Inj 1,000 ML @ 250 mls/hr IV 2000 / 2000 1000 / 1000 .CONT .Q4H MICKIE Rx#:[id number] Vancomycin Inj 1,000 MG In NS 250 / 250 Inj 250 ML @ 250 mls/hr IV.SIG Q24H MICKIE Rx#:[id number] Oral 240 / 240 Other: # Voids 3 Date of Last Bowel Movement 01/22/19 Narrative: Patient alert and awake s1s2 cta b/l abd soft, normal bowel sounds no edema of exts no focal neuro deficits. Urinary Catheter Management Straight: Cath placed during this visit: yes Reason for continuing: Not indwelling catheter Insertion date: 01/23/19 Insertion time: 02:38 Results Labs CBC & Chem 7: 01/25/19 06:02 01/25/19 06:02 Labs: Microbiology 01/23/19 00:20 Blood - Peripheral Aerobic Blood Culture - Preliminary No growth in 2 days 01/23/19 00:20 Blood - Peripheral Anaerobic Blood Culture - Preliminary No growth in 2 days 01/23/19 00:00 Blood - Peripheral Aerobic Blood Culture - Preliminary Staphylococcus coag negative 01/23/19 00:00 Blood - Peripheral Anaerobic Blood Culture - Preliminary No growth in 2 days Imaging Imaging: Impressions Myocardial Perfusion Scan Nuc Med 01/24/19 00:00 CONCLUSION: 1. Negative examination. Assessment and Plan (1) DKA (diabetic ketoacidosis): Code(s): E13.10 - Other specified diabetes mellitus with ketoacidosis without coma Status: Acute (2) Acute kidney injury: Code(s): N17.9 - Acute kidney failure, unspecified Status: Acute (3) Acute encephalopathy: Code(s): G93.40 - Encephalopathy, unspecified Status: Acute (4) Alcohol withdrawal: Code(s): F10.239 - Alcohol dependence with withdrawal, unspecified Status: Acute (5) Lactic acidosis: Code(s): E87.2 - Acidosis Status: Acute (6) Elevated troponin: Code(s): R74.8 - Abnormal levels of other serum enzymes Status: Acute Plan 58 y/o F with noncompliance with meds for Dm who presented with DKA and was found to have elevated troponins and positive blood cxs GPC. 1. DKA 2/2 medication noncompliance Patient still has elevated blood sugars. Will increase levemir to 15 units q daily. Continue to monitor blood sugars and adjust meds as needed. Continue sliding scale. Continue gabapentin for neuropathy. 2. Elevated troponin Cardiology following the patient. Stress test done yesterday which was negative. Continue medical management. Asa, statin, bb started. No complaints of chest pain. 3. GPC bacteremia afebrile since arrival on eval of vitals. 1/2 positive possibly contaminant. Will repeat the blood cxs. F/u the echo results wbc ct downtrended. 4. REZA 2/2 #1 and dehydration Improving after treatment for dka. 5. Tobacco abuse Patient advised to avoid tobacco use. 6. ETOH abuse [facility] protocol Advised to avoid alcohol 7. HTN Norvasc added to meds. Monitor bp and adjust meds as needed. 8. Hypothyroidism Continue synthroid. Heparin for dvt prophylaxis. Discharge plan: pt likely to be discharged tomorrow if echo negative and repeat blood cxs negative. Progress Note: Quality VTE Deep Vein Thrombosis/Pulmonary Embolism Present on Admission: No _ (1) DKA (diabetic ketoacidosis) Qualifiers: Diabetes mellitus complication detail: Diabetes mellitus type: (2) Alcohol withdrawal Qualifiers: Complication of substance-induced condition:
[2019-01-25] MEDS ORDERED: Insulin Detemir Inj 1,000 UNIT/10 ML Vial SQ ONE (13:05)
[2019-01-25] MEDS: amLODIPine 5 MG Tablet PO SCH (13:41)
[2019-01-25] MEDS: Vancomycin Inj 1,000 MG in Sodium Chlor 0.9% Inj 250 ML IV.SIG SCH (17:36)
--- NOTE | 2019-01-25 19:02 | ECHRPT ---
Indication: HYPERTENSIVE HEART DISEASE CONCLUSIONS Normal left ventricular size. Wall thickness is normal. The left ventricular systolic function is low normal with an estimated ejection fraction of 50%. Vlzti-rw-hlaq mitral valve regurgitation. Trace aortic valve regurgitation. There is mild tricuspid valve regurgitation. The estimated pulmonary arterial pressure is 42 mmHg. BP: / HR: Rhythm: Sinus MEASUREMENTS (Male / Female) Normal Values Technical Quality:Fair 2D ECHO LV Diastolic Diameter PLAX 3.8 cm 4.2 - 5.9 / 3.9 - 5.3 cm LV Systolic Diameter PLAX 3.2 cm IVS Diastolic Thickness 0.9 cm 0.6 - 1.0 / 0.6 - 0.9 cm LVPW Diastolic Thickness 0.9 cm 0.6 - 1.0 / 0.6 - 0.9 cm LV Relative Wall Thickness 0.5 RV Internal Dim ED PLAX 2.5 cm LVOT Diameter 1.6 cm Aortic Root Diameter 2.2 cm LA Systolic Diameter LX 2.5 cm 3.0 - 4.0 / 2.7 - 3.8 cm M-MODE AV Cusp Separation MM 1.6 cm DOPPLER AV Peak Velocity 123.0 cm/s AV Peak Gradient 6.1 mmHg AV Mean Gradient 3.0 mmHg AV Velocity Time Integral 23.2 cm LVOT Peak Velocity 77.5 cm/s LVOT Peak Gradient 2.4 mmHg LVOT Velocity Time Integral 15.5 cm AV Area Cont Eq vti 1.3 cm AV Area Cont Eq pk 1.3 cm Mitral E Point Velocity 68.3 cm/s Mitral A Point Velocity 72.6 cm/s Mitral E to A Ratio 0.9 LV E' Lateral Velocity 7.3 cm/s Mitral E to LV E' Lateral Ratio 9.4 LV E' Septal Velocity 6.6 cm/s Mitral E to LV E' Septal Ratio 10.3 TR Peak Velocity 281.0 cm/s TR Peak Gradient 31.6 mmHg Right Atrial Pressure 10.0 mmHg Pulmonary Artery Systolic Pressu 41.6 mmHg Right Ventricular Systolic Press 41.6 mmHg PV Peak Velocity 90.2 cm/s PV Peak Gradient 3.3 mmHg FINDINGS LEFT VENTRICLE Normal left ventricular size. Wall thickness is normal. The left ventricular systolic function is low normal with an estimated ejection fraction of 50%. RIGHT VENTRICLE Normal right ventricular size and systolic function. LEFT ATRIUM The left atrial size is normal. RIGHT ATRIUM The right atrial size is normal. ATRIAL SEPTUM No atrial level shunt is demonstrated by color flow Doppler interrogation. AORTA The aortic root and proximal ascending aorta are not well visualized. MITRAL VALVE Tyhad-wr-pluh mitral valve regurgitation. AORTIC VALVE Trace aortic valve regurgitation. TRICUSPID VALVE There is mild tricuspid valve regurgitation. The estimated pulmonary arterial pressure is 41.6 mmHg. PULMONARY VALVE The pulmonary valve is not well visualized. VESSELS The inferior vena cava is normal in size. PERICARDIUM No pericardial effusion. Aster Goff MD, FACC (Electronically Signed) Final Date:25 January 2019 19:01
[2019-01-26 01:47] VITALS: RESP 18
[2019-01-26] MEDS: hydrALAZINE 50 MG Tablet PO PRN (04:38)
[2019-01-26] MEDS: Levothyroxine 125 MCG Tablet PO SCH ×2 (04:38→07:12)
[2019-01-26] MEDS: Sod Chloride 0.9% Inj 1,000 ML IV.CONT SCH ×2 (04:39→07:28)
[2019-01-26] MEDS: Insulin NovoLIN Regular Correctional Sugar Inj SQ SCH ×2 (04:39→08:31)
[2019-01-26] MEDS: Chlorhexidine Gluconate 2% 1 Pack (2 Cloths) TOPICAL SCH (04:39)
[2019-01-26 08:18] VITALS: BP 174/85; PULSE 77; TEMP 98.4
[2019-01-26] MEDS: Metoprolol Tartrate 50 MG Tablet PO SCH (08:27)
[2019-01-26] MEDS: Famotidine 20 MG Tablet PO SCH (08:27)
[2019-01-26] MEDS: Sertraline 50 MG Tablet PO SCH (08:28)
[2019-01-26] MEDS: OXcarbazepine 150 MG Tablet PO SCH (08:29)
[2019-01-26] MEDS: amLODIPine 5 MG Tablet PO SCH (08:30)
[2019-01-26] MEDS: Senna/Docusate Sodium 8.6/50 MG Tablet PO SCH (08:30)
[2019-01-26] MEDS: Lisinopril 5 MG Tablet PO SCH (08:30)
[2019-01-26] MEDS: Gabapentin 300 MG Capsule PO SCH (08:30)
[2019-01-26] MEDS: Heparin - SQ 10,000 UNITS/ML Vial SQ SCH (08:31)
[2019-01-26] MEDS ORDERED: Insulin Detemir Inj 1,000 UNIT/10 ML Vial SQ SCH (09:00)
[2019-01-26 10:50] VITALS: O2SAT 97
--- NOTE | 2019-01-26 13:14 | P.DS ---
DS: Providers Date of admission: 01/23/19 02:06 Primary care physician: UNKNOWN Consults: 01/23/19 14:35 Consult to Hospitalist Routine Consulting Provider: Buzz Marti Reason for Consultation: DKA Notified:: Service Spoke with:: CARMENCITA Date Notified:: 01/23/19 Time Notified:: 15:30 Comments:: Ordering Provider: LISA 01/24/19 11:44 Consult to Cardiology Routine Consulting Provider: Maksim Pop Does the patient have a Dopeman who follows them?: No Preferred Senior Network Engineer:: Outdoor Illuminating Engineer Physician Reason for Consultation: troponin elevation Notified:: Office Spoke with:: Milli Date Notified:: 01/24/19 Time Notified:: 11:46 Ordering Provider: CRISTAL 01/25/19 11:14 HUB Only Consult Order Routine Consulting Provider: Hien Stanford Brief History from admission: 58yF who presented to the emergency department complaining of hyperglycemia, polyuria/ polydipsia, and "not feeling well" x 1 day. She has a history of IDDM on an insulin pump and says that around 3 AM yesterday she had a glucose of 45, but later on in the morning it was >250. She reports chills, generalized weakness, nausea, several episodes of vomiting, and malaise. The patient arrived to the ED tachypneic with Kussmaul respirations and confusion, found to have a glucose of 900 with elevated anion gap acidosis, lactic acidosis, and elevated beta hydroxybutyrate. Critical care service was consulted for admission for DKA. Of note, the patient also reports that she drinks several alcoholic drinks daily , last drink >24 hours ago. DS: Diagnosis Discharge Diagnosis (1) DKA (diabetic ketoacidosis): Status: Acute (2) Acute kidney injury: Status: Acute (3) Acute encephalopathy: Status: Acute (4) Alcohol withdrawal: Status: Acute (5) Lactic acidosis: Status: Acute (6) Elevated troponin: Status: Acute DS: Summary 58 y/o F with noncompliance with meds for Dm on insulin pump who ran out of insulin and presented with DKA and was found to have elevated troponins and positive blood cxs GPC. 1. DKA 2/2 medication noncompliance Initially was in the ICU, started on aggressive ivf resuscitation. Was on insulin gtt then bridged off. Blood sugars now better controlled after increasing levemir to 15 units sub q q hs. Patient was on an insulin pump at home which did not have insulin in it as per the patient. She is not a very good historian and I am not sure if she has the pump any longer. I recommend that she use levemir on discharge. I gave the patient a script for levemir. She can then follow up with her pcp in one week. She follows up with [facility]. She also has an solar energy technician who manages her DM. She can follow up with the solar energy technician within two weeks. She was advised to monitor her blood sugars at home and to present a blood sugar log to her pcp. 2. Elevated troponin Cardiology followed the patient. Trops peaked at 1.87 then downtrended. possibly due to volume depletion from DKA. Stress test lexiscan done which was negative. Continue medical management as per their recs. Asa, statin, bb started. No complaints of chest pain. Scripts given to the patient for meds prior to her discharge. 3. GPC bacteremia likely contaminant. afebrile since arrival on eval of vitals. 1/2 positive likely contaminant. Will repeat the blood cxs. Echo negative for vegetations. Repeat blood cxs are negative so far. wbc ct downtrended. 4. REZA 2/2 #1 and dehydration Improved after treatment for dka. 5. Tobacco abuse Patient advised to avoid tobacco use. 6. ETOH abuse [facility] protocol Advised to avoid alcohol No signs of withdrawal. Continue thiamine. 7. HTN Norvasc added to meds. Continue bb. 8. Hypothyroidism Continue synthroid. Time Spent with Patient Total time spent providing and/or coordinating discharge services: Greater than 30 minutes Quality: VTE Deep Vein Thrombosis/Pulmonary Embolism Present on Admission: No Exam Narrative Exam Narrative: Patient alert and awake s1s2 cta b/l abd soft, normal bowel sounds no edema of exts no focal neuro deficits. Results Labs on day of discharge: Labs from last 24 hours 01/26/19 01/26/19 01/25/19 07:18 04:38 21:03 POC Glucose 211 H 111 H 69 01/25/19 16:35 POC Glucose 169 H Preliminary micro results at discharge 01/25/19 21:13 Aerobic Blood Culture - Preliminary Blood - Peripheral No growth in 1 day Anaerobic Blood Culture - Preliminary No growth in 1 day 01/25/19 21:08 Aerobic Blood Culture - Preliminary Blood - Peripheral No growth in 1 day Anaerobic Blood Culture - Preliminary No growth in 1 day 01/23/19 00:20 Aerobic Blood Culture - Preliminary Blood - Peripheral No growth in 3 days Anaerobic Blood Culture - Preliminary No growth in 3 days 01/23/19 00:00 Aerobic Blood Culture - Preliminary Blood - Peripheral Staphylococcus coag negative Anaerobic Blood Culture - Preliminary No growth in 3 days Impressions ITS Impressions Head CT 01/23/19 00:00 CONCLUSION: 1. No acute intracranial abnormality . . Chest X-Ray 01/23/19 00:18 CONCLUSION: No acute cardiopulmonary disease Myocardial Perfusion Scan Nuc Med 01/24/19 00:00 CONCLUSION: 1. Negative examination. Discharge Plan Discharge Disposition Patient Disposition: Discharge Home Discharge Order Discharge Orders: Discharge Order (Routine); Ordered 01/26/19 Ordered By: Isidoro Paz Discharge Details Discharge Comment: Pending eval by Dr Paz Physicians Team ED Provider: Lennie Buckley Primary Care Provider: UNKNOWN, Attending Provider: Isidoro Paz Other Providers: Maksim Pop ; Hien,[employer] Rxs /Orders / Referrals /Forms Prescriptions: New atorvastatin 40 mg Tablet 40 mg PO HS Qty: 30 RF: 0 amlodipine [Norvasc] 5 mg Tablet 10 mg PO DAILY Qty: 30 RF: 0 hydralazine 50 mg Tablet 50 mg PO TID PRN (Reason: SBP > 160) Qty: 90 RF: 0 thiamine HCl (vitamin B1) 100 mg Tablet 100 mg PO BID Qty: 60 RF: 0 lisinopril 10 mg tablet 10 mg PO DAILY Qty: 30 RF: 0 aspirin 81 mg Tablet,Chewable 81 mg PO DAILY Qty: 30 RF: 0 insulin detemir U-100 [Levemir U-100 Insulin] 100 unit/mL Solution 15 unit subcut DAILY Qty: 1000 RF: 0 Continue trazodone 100 mg Tablet 100 mg PO HS RF: 0 gabapentin 300 mg Capsule 300 mg PO BID RF: 0 sertraline 25 mg Tablet 25 mg PO DAILY RF: 0 levothyroxine 125 mcg Capsule 125 mcg PO DAILY RF: 0 oxcarbazepine 150 mg Tablet 75 mg BID RF: 0 metoprolol succinate 50 mg Tablet Extended Release 24 Hr 50 mg PO DAILY RF: 0 Discontinued pravastatin 40 mg Tablet 40 mg PO DAILY RF: 0 lisinopril 5 mg Tablet 5 mg PO DAILY RF: 0 Referrals: UNKNOWN, [Primary Care Provider] - See Instructions (Follow up with your Primary care if you do not have one: *[facility] offers same day APPT. Call the morning of you would like to be seen; Office opens at 8:00am. [facility] Address: [address] [place] [address] ) Discharge Instructions Patient Printed Instructions: Acute Kidney Injury (DC), Diabetic Ketoacidosis ( DC) Additional Instructions: Patient will need follow up with a primary care doctor in a week. She follows up at [facility]. Instructions were given to the patient. She says that she has an solar energy technician and primary care doctor that she will follow up with. Status ED Status: Left Department Discharge Information Discharge Date/Time: 01/26/19 11:45
[2019-01-27] MEDS ORDERED: Pharmacy Ordered Lab Info OTHER ONE (17:45)
== END 2019-01-26 11:45 | disposition home or self-care (01) | DRG 637 ==
LOC: NEPE 00:04 → NEDA 02:06 → N03 05:55 → N07 01-24 18:22
PROVIDERS: ADMIT Hospitalist; ATTEND Hospitalist
DX: Z91.14 Patient's other noncompliance with medication regimen; M79.7 Fibromyalgia; G93.40 Encephalopathy, unspecified; E78.00 Pure hypercholesterolemia, unspecified; Z79.4 Long term (current) use of insulin; E11.42 Type 2 diabetes mellitus with diabetic polyneuropathy; E87.6 Hypokalemia; Z91.19 Patient's noncompliance with other medical treatment and regimen; F17.210 Nicotine dependence, cigarettes, uncomplicated; E78.5 Hyperlipidemia, unspecified; F12.10 Cannabis abuse, uncomplicated; N17.9 Acute kidney failure, unspecified; R78.81 Bacteremia; E86.0 Dehydration; I21.A1 Myocardial infarction type 2; E11.10 Type 2 diabetes mellitus with ketoacidosis without coma; Z96.41 Presence of insulin pump (external) (internal); E03.9 Hypothyroidism, unspecified; I10 Essential (primary) hypertension; F41.9 Anxiety disorder, unspecified; E11.36 Type 2 diabetes mellitus with diabetic cataract; F10.231 Alcohol dependence with withdrawal delirium; F32.9 Major depressive disorder, single episode, unspecified
CPT/HCPCS: 70450; 71010; 71045; 76937; 78452; 80048; 80053; 80061; 81001; 82010; 82550; 82552; 82803; 82805; 82947; 82948; 82962; 83520; 83605; 83690; 83735; 83880; 84100; 84484; 85025; 85610; 85730; 87040; 87149; 87186; 87205; 87641; 90761; 90774; 90784; 93005; 93017; 93306; 94150; 96361; 96374; 97161; 97530; 99291; A9502; C8952; J0360; J1644; J1815; J1817; J2060; J2785; J3370; J3411; J3480; J7030; J7042; J7050